=== PATIENT | male | born 1975 | race American Indian/Alaskan Native ===

== ENCOUNTER 2016-12-31 19:41 | Emergency (ER) | payer MEDICARE ==
[2016-12-31 19:50] VITALS: BP 166/122
[2016-12-31] MEDS ORDERED: TYLENOL PO ONE (19:52)
[2016-12-31] MEDS ORDERED: TYLENOL ONE (19:57)
[2016-12-31 20:20] LABS: Basophils % (Auto) 0.5 % (0.0-1.8); Eosinophils % (Auto) 1.2 % (0.0-4.3); Hematocrit 41.8 % (35.5-45.6); Hemoglobin 13.7 gm/dl (11.8-15.2); Mean Corpuscular HGB Conc 33 % (32-34); Mean Corpuscular Hemoglobin 29 pg (28-32); Mean Corpuscular Volume 87 fl (84-94); Platelet Count 219 K/mm3 (140-440); Red Blood Count 4.79 M/mm3 (3.65-5.03); Red Cell Distribution Width 14.3 % (13.2-15.2); White Blood Count 4.2 K/mm3 (4.5-11.0)
[2016-12-31 20:31] LABS: INR 0.98 (0.87-1.13); Partial Thromboplastin Time 27.7 Sec. (24.2-36.6)
[2016-12-31 21:14] LABS: Alanine Aminotransferase 52 units/L (7-56); Albumin 4.1 g/dL (3.9-5); Albumin/Globulin Ratio 1.2 %; Alkaline Phosphatase 86 units/L (35-129); Anion Gap 22 mmol/L; Blood Urea Nitrogen 27 mg/dL (9-20); Calcium 9.1 mg/dL (8.4-10.2); Carbon Dioxide 23 mmol/L (22-30); Chloride 103.7 mmol/L (98-107); Glucose 102 mg/dL (75-100); Lipase 31 units/L (13-60); Potassium 3.5 mmol/L (3.6-5.0); Sodium 145 mmol/L (137-145); Total Protein 7.4 g/dL (6.3-8.2)
[2017-01-01 00:57] LABS: Bilirubin,Urine NEG (Negative); Blood,Urine NEG (Negative); Ketones,Urine TR mg/dL (Negative); Leukocyte Esterase,Urine NEG (Negative); Nitrite,Urine NEG (Negative); Protein,Urine <15 mg/dL mg/dL (Negative); RBC,Urine < 1.0 /HPF (0.0-6.0); Urobilinogen,Urine < 2.0 mg/dL (<2.0)
== END 2017-01-01 00:05 | disposition left against medical advice (07) ==
LOC: ED 19:41
DX: I10 Essential (primary) hypertension (principal); R51 Headache; R11.0 Nausea; Z72.0 Tobacco use; Z88.5 Allergy status to narcotic agent; Z53.21 Procedure and treatment not carried out due to patient leaving prior to being seen by health care provider
CPT/HCPCS: 36415; 80053; 81001; 83690; 84484; 85025; 85610; 85730; 93005; 93010

== ENCOUNTER 2017-01-01 12:13 | Emergency (ER) | payer MEDICARE ==
[2017-01-01 12:26] VITALS: BP 153/111
[2017-01-01 12:59] LABS: Basophils % (Auto) 0.7 % (0.0-1.8); Eosinophils % (Auto) 1.5 % (0.0-4.3); Hematocrit 42.9 % (35.5-45.6); Mean Corpuscular HGB Conc 33 % (32-34); Mean Corpuscular Hemoglobin 28 pg (28-32); Mean Corpuscular Volume 87 fl (84-94); Platelet Count 230 K/mm3 (140-440); Red Blood Count 4.95 M/mm3 (3.65-5.03); Red Cell Distribution Width 14.7 % (13.2-15.2); White Blood Count 2.9 K/mm3 (4.5-11.0)
[2017-01-01 13:36] LABS: Anion Gap 19 mmol/L; Blood Urea Nitrogen 21 mg/dL (9-20); Calcium 9.1 mg/dL (8.4-10.2); Carbon Dioxide 23 mmol/L (22-30); Chloride 107.7 mmol/L (98-107); Glucose 94 mg/dL (75-100); Potassium 3.5 mmol/L (3.6-5.0); Sodium 146 mmol/L (137-145)
== END 2017-01-01 12:40 | disposition left against medical advice (07) ==
LOC: ED 12:13
DX: R07.81 Pleurodynia (principal); R07.9 Chest pain, unspecified; Z53.21 Procedure and treatment not carried out due to patient leaving prior to being seen by health care provider
CPT/HCPCS: 36415; 80048; 84484; 85025; 93005; 93010

== ENCOUNTER 2018-11-11 14:55 | Emergency (ER) | payer MEDICARE ==
[2018-11-11 16:10] LABS: Basophils % (Auto) 0.7 % (0.0-1.8); Eosinophils # (Auto) 0.1 K/mm3 (0.0-0.4); Eosinophils % (Auto) 2.8 % (0.0-4.3); Hematocrit 41.4 % (35.5-45.6); Hemoglobin 13.7 gm/dl (11.8-15.2); Lymphocytes # (Auto) 1.7 K/mm3 (1.2-5.4); Lymphocytes % (Auto) 44.3 % (13.4-35.0); Mean Corpuscular HGB Conc 33 % (32-34); Mean Corpuscular Hemoglobin 30 pg (28-32); Mean Corpuscular Volume 89 fl (84-94); Monocytes # (Auto) 0.4 K/mm3 (0.0-0.8); Monocytes % (Auto) 10.1 % (0.0-7.3); Platelet Count 273 K/mm3 (140-440); Red Blood Count 4.65 M/mm3 (3.65-5.03); Red Cell Distribution Width 14.5 % (13.2-15.2)
[2018-11-11 16:26] LABS: BUN/Creatinine Ratio 19; Blood Urea Nitrogen 17 mg/dL (9-20); Calcium 9.3 mg/dL (8.4-10.2); Hemolysis Index 28
[2018-11-11] MEDS ORDERED: CATAPRES PO ONE (17:00)
--- NOTE | 2018-11-11 17:07 | Emergency Department Report ---
ED General Adult HPI - General Chief complaint: High BP Stated complaint: BP HIGH Time Seen by Provider: 11/11/18 16:36 Source: patient Mode of arrival: Ambulatory Limitations: No Limitations - History of Present Illness Initial comments: The patient presents to the emergency department with the chief complaint elevated blood pressure. The patient was at Dr. Devine's office and his blood pressure was elevated and thus the patient was sent to the emergency department. Patient denies chest pain, says breath, headache, numbness, tingling. Patient also complains of a cough and congestion for the last 2-3 days. Patient endorses taking his blood pressure medications but does not know the name of them. -: unknown Severity scale (0 -10): 0 Consistency: constant Improves with: none Worsens with: none Associated Symptoms: denies other symptoms Treatments Prior to Arrival: none - Related Data Home Medications Medication Instructions Recorded Confirmed Last Taken Valacyclovir HCl [Valtrex] 1,000 mg PO DAILY 06/09/14 06/09/14 06/08/14 carBAMazepine [TEGretol] 200 mg PO BID 06/09/14 06/09/14 06/07/14 Previous Rx's Medication Instructions Recorded Last Taken Type Ibuprofen [Motrin] 600 mg PO Q8H PRN #20 tablet 04/10/18 Unknown Rx ALBUTEROL Inhaler (OR & NICU) 2 puff IH Q4HR PRN #1 inhalation 11/11/18 Unknown Rx [ProAir HFA Inhaler] Azithromycin [Zithromax Z-TERESA] 250 mg PO DAILY #6 tablet 11/11/18 Unknown Rx Benzonatate [Tessalon Perles] 100 mg PO Q8HR PRN #20 capsule 11/11/18 Unknown Rx Allergies Allergy/AdvReac Type Severity Reaction Status Date / Time morphine Allergy Hives Verified 11/11/18 14:56 ED Review of Systems ROS: Stated complaint: BP HIGH Other details as noted in HPI Comment: All other systems reviewed and negative Constitutional: denies: chills, fever Eyes: denies: eye pain, eye discharge, vision change ENT: denies: ear pain, throat pain Respiratory: cough. denies: shortness of breath, wheezing Cardiovascular: denies: chest pain, palpitations Endocrine: no symptoms reported Gastrointestinal: denies: abdominal pain, nausea, diarrhea Genitourinary: denies: urgency, dysuria Musculoskeletal: denies: back pain, joint swelling, arthralgia Skin: denies: rash, lesions Neurological: denies: headache, weakness, paresthesias Psychiatric: denies: anxiety, depression Hematological/Lymphatic: denies: easy bleeding, easy bruising ED Past Medical Hx - Past Medical History Hx Hypertension: Yes Hx CVA: No Hx Heart Attack/AMI: No Hx Congestive Heart Failure: No Hx Diabetes: No Hx Deep Vein Thrombosis: No Hx Pulmonary Embolism: No Hx GERD: No Hx Liver Disease: No Hx Renal Disease: No Hx Sickle Cell Disease: No Hx Arthritis: No Hx Headaches / Migraines: No Hx Seizures: Yes Hx Kidney Stones: No Hx Psychiatric Treatment: No Hx Asthma: No Hx COPD: No Hx Tuberculosis: No Hx Dementia: No Hx HIV: Yes - Surgical History Hx Coronary Stent: No Hx Open Heart Surgery: No Hx Pacemaker: No Hx Internal Defibrillator: No Hx Cholecystectomy: No Hx Appendectomy: No Hx Breast Surgery: No Additional Surgical History: hernia repair - Social History Smoking Status: Never Smoker Substance Use Type: None - Medications Home Medications: Home Medications Medication Instructions Recorded Confirmed Last Taken Type Valacyclovir HCl [Valtrex] 1,000 mg PO DAILY 06/09/14 06/09/14 06/08/14 History carBAMazepine [TEGretol] 200 mg PO BID 06/09/14 06/09/14 06/07/14 History Ibuprofen [Motrin] 600 mg PO Q8H PRN #20 tablet 04/10/18 Unknown Rx ALBUTEROL Inhaler (OR & NICU) 2 puff IH Q4HR PRN #1 inhalation 11/11/18 Unknown Rx [ProAir HFA Inhaler] Azithromycin [Zithromax Z-TERESA] 250 mg PO DAILY #6 tablet 11/11/18 Unknown Rx Benzonatate [Tessalon Perles] 100 mg PO Q8HR PRN #20 capsule 11/11/18 Unknown Rx ED Physical Exam - General Limitations: No Limitations General appearance: alert, in no apparent distress - Head Head exam: Present: atraumatic, normocephalic - Eye Eye exam: Present: normal appearance - ENT ENT exam: Present: mucous membranes moist - Neck Neck exam: Present: normal inspection - Respiratory Respiratory exam: Present: normal lung sounds bilaterally. Absent: respiratory distress - Cardiovascular Cardiovascular Exam: Present: regular rate, normal rhythm. Absent: systolic murmur, diastolic murmur, rubs, gallop - GI/Abdominal GI/Abdominal exam: Present: soft, normal bowel sounds. Absent: distended, tenderness - Rectal Rectal exam: Present: deferred - Extremities Exam Extremities exam: Present: normal inspection - Back Exam Back exam: Present: normal inspection - Neurological Exam Neurological exam: Present: alert, oriented X3, CN II-XII intact. Absent: motor sensory deficit - Psychiatric Psychiatric exam: Present: normal affect, normal mood - Skin Skin exam: Present: warm, dry, intact, normal color. Absent: rash ED Course Vital Signs 11/11/18 11/11/18 11/11/18 15:13 16:00 17:00 Temperature 97.8 F Pulse Rate 63 69 Respiratory 16 Rate Blood Pressure Blood Pressure 186/126 172/113 [Left] O2 Sat by Pulse 100 99 Oximetry 11/11/18 11/11/18 17:27 18:20 Temperature Pulse Rate 69 69 Respiratory Rate Blood Pressure 166/121 Blood Pressure 175/121 [Left] O2 Sat by Pulse Oximetry ED Medical Decision Making - Lab Data Result diagrams: 11/11/18 15:32 11/11/18 15:32 Lab Results 11/11/18 11/11/18 11/11/18 Range/Units 15:32 15:32 15:32 WBC 3.7 L (4.5-11.0) K/mm3 RBC 4.65 (3.65-5.03) M/mm3 Hgb 13.7 (11.8-15.2) gm/dl Hct 41.4 (35.5-45.6) % MCV 89 (84-94) fl MCH 30 (28-32) pg MCHC 33 (32-34) % RDW 14.5 (13.2-15.2) % Plt Count 273 (140-440) K/mm3 Lymph % (Auto) 44.3 H (13.4-35.0) % [place] % (Auto) 10.1 H (0.0-7.3) % Eos % (Auto) 2.8 (0.0-4.3) % Baso % (Auto) 0.7 (0.0-1.8) % Lymph # 1.7 (1.2-5.4) K/mm3 [place] # 0.4 (0.0-0.8) K/mm3 Eos # 0.1 (0.0-0.4) K/mm3 Baso # 0.0 (0.0-0.1) K/mm3 Seg Neutrophils % 42.1 (40.0-70.0) % Seg Neutrophils # 1.6 L (1.8-7.7) K/mm3 Sodium 142 (137-145) mmol/L Potassium 3.5 L (3.6-5.0) mmol/L Chloride 103.1 (98-107) mmol/L Carbon Dioxide 28 (22-30) mmol/L Anion Gap 14 mmol/L BUN 17 (9-20) mg/dL Creatinine 0.9 (0.8-1.5) mg/dL Estimated GFR > 60 ml/min BUN/Creatinine Ratio 19 % Glucose 91 (75-100) mg/dL Calcium 9.3 (8.4-10.2) mg/dL Troponin T < 0.010 (0.00-0.029) ng/mL - Radiology Data Radiology results: report reviewed - Medical Decision Making discussed results with patient Critical care attestation.: If time is entered above; I have spent that time in minutes in the direct care of this critically ill patient, excluding procedure time. ED Disposition Clinical Impression: Hypertension, Acute bronchitis Disposition: TO HOME OR SELFCARE Is pt being admited?: No Does the pt Need Aspirin: No Condition: Stable Instructions: Acute Bronchitis (ED), Hypertension (ED) Additional Instructions: return if worse Prescriptions: ALBUTEROL Inhaler (OR & NICU) [ProAir HFA Inhaler] 2 puff IH Q4HR PRN #1 inhalation PRN Reason: Shortness Of Breath Benzonatate [Tessalon Perles] 100 mg PO Q8HR PRN #20 capsule PRN Reason: Cough Azithromycin [Zithromax Z-TERESA] 250 mg PO DAILY #6 tablet Referrals: PHILIP DEVINE MD [Primary Care Provider] - 3-5 Days Time of Disposition: 18:24
--- NOTE | 2018-11-11 17:30 | XRay Report ---
CHEST 1 VIEW 5:07 PM INDICATION / CLINICAL INFORMATION: Cough. Chest pain, arm pain and leg swelling. High blood pressure. COMPARISON: None available. FINDINGS: SUPPORT DEVICES: None. HEART / MEDIASTINUM: The heart size is normal with a left ventricular configuration. There is mild ao rtic tortuosity without aneurysm. LUNGS / PLEURA: No significant pulmonary or pleural abnormality. No pneumothorax. ADDITIONAL FINDINGS: The left hemidiaphragm is slightly elevated. IMPRESSION: No acute findings. Signer Name: Oliver Medeiros MD Signed: 11/11/2018 5:25 PM Workstation Name: [id number]
[2018-11-11 18:21] VITALS: BP 175/121
== END 2018-11-11 18:53 | disposition home or self-care (01) ==
LOC: ED 14:55
DX: J20.9 Acute bronchitis, unspecified (principal); I10 Essential (primary) hypertension; Z88.5 Allergy status to narcotic agent; Z79.1 Long term (current) use of non-steroidal anti-inflammatories (NSAID); Z21 Asymptomatic human immunodeficiency virus [HIV] infection status; Z98.890 Other specified postprocedural states
CPT/HCPCS: 36415; 71045; 80048; 84484; 85025; 93005; 93010; 99284

== ENCOUNTER 2018-11-21 10:17 | Emergency (ER) | payer MEDICARE ==
[2018-11-21] MEDS ORDERED: FIORICET PO ONE (10:58)
[2018-11-21] MEDS ORDERED: BENADRYL IV ONE (10:58)
[2018-11-21] MEDS ORDERED: REGLAN IV ONE (10:58)
--- NOTE | 2018-11-21 11:05 | Emergency Department Report ---
ED General Adult HPI - General Chief complaint: Chest Pain Stated complaint: CHEST PAIN Time Seen by Provider: 11/21/18 10:34 Source: patient Mode of arrival: Ambulatory Limitations: No Limitations - History of Present Illness Initial comments: Disposition persistent emergency department with a chief complaint of chest pain one week which has been consistent in nature. The chest pain the patient also complains of shortness of breath which has become progressively worse over this timeframe as well. Patient complains of a frontal headache that has been present for 1 day which is consistent with prior headaches and is not the worst headache of his life. -: Gradual Location: head, chest Severity scale (0 -10): 8 Quality: aching Consistency: constant Improves with: none Worsens with: none Associated Symptoms: denies other symptoms Treatments Prior to Arrival: none - Related Data Home Medications Medication Instructions Recorded Confirmed Last Taken Valacyclovir HCl [Valtrex] 1,000 mg PO DAILY 06/09/14 06/09/14 06/08/14 carBAMazepine [TEGretol] 200 mg PO BID 06/09/14 06/09/14 06/07/14 Previous Rx's Medication Instructions Recorded Last Taken Type Ibuprofen [Motrin] 600 mg PO Q8H PRN #20 tablet 04/10/18 Unknown Rx ALBUTEROL Inhaler (OR & NICU) 2 puff IH Q4HR PRN #1 inhalation 11/11/18 Unknown Rx [ProAir HFA Inhaler] Azithromycin [Zithromax Z-TERESA] 250 mg PO DAILY #6 tablet 11/11/18 Unknown Rx Benzonatate [Tessalon Perles] 100 mg PO Q8HR PRN #20 capsule 11/11/18 Unknown Rx Allergies Allergy/AdvReac Type Severity Reaction Status Date / Time morphine Allergy Hives Verified 11/11/18 14:56 Sulfa (Sulfonamide Allergy Hives Verified 11/21/18 10:23 Antibiotics) ED Review of Systems ROS: Stated complaint: CHEST PAIN Other details as noted in HPI Comment: All other systems reviewed and negative Constitutional: denies: chills, fever Eyes: denies: eye pain, eye discharge, vision change ENT: denies: ear pain, throat pain Respiratory: shortness of breath. denies: cough, wheezing Cardiovascular: chest pain. denies: palpitations Endocrine: no symptoms reported Gastrointestinal: denies: abdominal pain, nausea, diarrhea Genitourinary: denies: urgency, dysuria Musculoskeletal: denies: back pain, joint swelling, arthralgia Skin: denies: rash, lesions Neurological: denies: headache, weakness, paresthesias Psychiatric: denies: anxiety, depression Hematological/Lymphatic: denies: easy bleeding, easy bruising ED Past Medical Hx - Past Medical History Hx Hypertension: Yes Hx CVA: No Hx Heart Attack/AMI: No Hx Congestive Heart Failure: No Hx Diabetes: No Hx Deep Vein Thrombosis: No Hx Pulmonary Embolism: No Hx GERD: No Hx Liver Disease: No Hx Renal Disease: No Hx Sickle Cell Disease: No Hx Arthritis: No Hx Headaches / Migraines: No Hx Seizures: Yes Hx Kidney Stones: No Hx Psychiatric Treatment: No Hx Asthma: No Hx COPD: No Hx Tuberculosis: No Hx Dementia: No Hx HIV: Yes - Surgical History Hx Coronary Stent: No Hx Open Heart Surgery: No Hx Pacemaker: No Hx Internal Defibrillator: No Hx Cholecystectomy: No Hx Appendectomy: No Hx Breast Surgery: No Additional Surgical History: hernia repair - Social History Smoking Status: Never Smoker Substance Use Type: Alcohol - Medications Home Medications: Home Medications Medication Instructions Recorded Confirmed Last Taken Type Valacyclovir HCl [Valtrex] 1,000 mg PO DAILY 06/09/14 06/09/14 06/08/14 History carBAMazepine [TEGretol] 200 mg PO BID 06/09/14 06/09/14 06/07/14 History Ibuprofen [Motrin] 600 mg PO Q8H PRN #20 tablet 04/10/18 Unknown Rx ALBUTEROL Inhaler (OR & NICU) 2 puff IH Q4HR PRN #1 inhalation 11/11/18 Unknown Rx [ProAir HFA Inhaler] Azithromycin [Zithromax Z-TERESA] 250 mg PO DAILY #6 tablet 11/11/18 Unknown Rx Benzonatate [Tessalon Perles] 100 mg PO Q8HR PRN #20 capsule 11/11/18 Unknown Rx ED Physical Exam - General Limitations: No Limitations General appearance: alert, in no apparent distress - Head Head exam: Present: atraumatic, normocephalic - Eye Eye exam: Present: normal appearance, PERRL - ENT ENT exam: Present: mucous membranes moist - Neck Neck exam: Present: normal inspection - Respiratory Respiratory exam: Present: normal lung sounds bilaterally. Absent: respiratory distress - Cardiovascular Cardiovascular Exam: Present: regular rate, normal rhythm. Absent: systolic murmur, diastolic murmur, rubs, gallop - GI/Abdominal GI/Abdominal exam: Present: soft, normal bowel sounds. Absent: distended, tenderness - Rectal Rectal exam: Present: deferred - Extremities Exam Extremities exam: Present: normal inspection - Back Exam Back exam: Present: normal inspection - Neurological Exam Neurological exam: Present: alert, oriented X3, CN II-XII intact. Absent: motor sensory deficit - Psychiatric Psychiatric exam: Present: normal affect, normal mood - Skin Skin exam: Present: warm, dry, intact, normal color. Absent: rash ED Course Vital Signs 11/21/18 11/21/18 11/21/18 10:19 10:23 10:30 Temperature 98 F Pulse Rate 66 Respiratory 16 Rate Blood Pressure 147/102 147/102 147/102 O2 Sat by Pulse 100 99 100 Oximetry 11/21/18 11/21/18 11/21/18 10:45 11:00 11:25 Temperature Pulse Rate Respiratory Rate Blood Pressure 163/114 163/114 147/102 O2 Sat by Pulse 100 100 100 Oximetry 11/21/18 11/21/18 11/21/18 11:30 11:45 12:00 Temperature Pulse Rate Respiratory Rate Blood Pressure 167/115 151/102 150/103 O2 Sat by Pulse 98 99 97 Oximetry 11/21/18 11/21/18 11/21/18 12:15 12:30 12:45 Temperature Pulse Rate Respiratory Rate Blood Pressure 144/96 153/104 145/106 O2 Sat by Pulse 97 98 92 Oximetry 11/21/18 13:01 Temperature Pulse Rate Respiratory Rate Blood Pressure 155/112 O2 Sat by Pulse 97 Oximetry ED Medical Decision Making - Lab Data Result diagrams: 11/21/18 11:29 11/21/18 11:29 Lab Results 11/21/18 11/21/18 11/21/18 Range/Units 11:29 11:29 11:29 WBC 2.9 L (4.5-11.0) K/mm3 RBC 4.89 (3.65-5.03) M/mm3 Hgb 14.2 (11.8-15.2) gm/dl Hct 43.0 (35.5-45.6) % MCV 88 (84-94) fl MCH 29 (28-32) pg MCHC 33 (32-34) % RDW 14.1 (13.2-15.2) % Plt Count 232 (140-440) K/mm3 Lymph % (Auto) 41.1 H (13.4-35.0) % [place] % (Auto) 12.1 H (0.0-7.3) % Eos % (Auto) 4.8 H (0.0-4.3) % Baso % (Auto) 0.5 (0.0-1.8) % Lymph # 1.2 (1.2-5.4) K/mm3 [place] # 0.3 (0.0-0.8) K/mm3 Eos # 0.1 (0.0-0.4) K/mm3 Baso # 0.0 (0.0-0.1) K/mm3 Seg Neutrophils % 41.5 (40.0-70.0) % Seg Neutrophils # 1.2 L (1.8-7.7) K/mm3 PT 12.6 (12.2-14.9) Sec. INR 0.97 (0.87-1.13) APTT 28.3 (24.2-36.6) Sec. Sodium 139 (137-145) mmol/L Potassium 3.5 L (3.6-5.0) mmol/L Chloride 101.4 (98-107) mmol/L Carbon Dioxide 26 (22-30) mmol/L Anion Gap 15 mmol/L BUN 18 (9-20) mg/dL Creatinine 0.9 (0.8-1.5) mg/dL Estimated GFR > 60 ml/min BUN/Creatinine Ratio 20 % Glucose 92 (75-100) mg/dL Calcium 9.3 (8.4-10.2) mg/dL Total Bilirubin 0.20 (0.1-1.2) mg/dL AST 21 (5-40) units/L ALT 19 (7-56) units/L Alkaline Phosphatase 89 (35-129) units/L Troponin T < 0.010 (0.00-0.029) ng/mL Total Protein 7.4 (6.3-8.2) g/dL Albumin 3.9 (3.9-5) g/dL Albumin/Globulin Ratio 1.1 % Lipase 44 (13-60) units/L Urine Color (Yellow) Urine Turbidity (Clear) Urine pH (5.0-7.0) Ur Specific [place] (1.003-1.030) Urine Protein (Negative) mg/dL Urine Glucose (UA) (Negative) mg/dL Urine Ketones (Negative) mg/dL Urine Blood (Negative) Urine Nitrite (Negative) Urine Bilirubin (Negative) Urine Urobilinogen (<2.0) mg/dL Ur Leukocyte Esterase (Negative) Urine WBC (Auto) (0.0-6.0) /HPF Urine RBC (Auto) (0.0-6.0) /HPF Urine Opiates Screen Urine Methadone Screen Ur Barbiturates Screen Ur Phencyclidine Scrn Ur Amphetamines Screen U Benzodiazepines Scrn Urine Cocaine Screen U Marijuana (THC) Screen Drugs of Abuse Note 11/21/18 11/21/18 11/21/18 Range/Units 12:53 13:14 13:14 WBC (4.5-11.0) K/mm3 RBC (3.65-5.03) M/mm3 Hgb (11.8-15.2) gm/dl Hct (35.5-45.6) % MCV (84-94) fl MCH (28-32) pg MCHC (32-34) % RDW (13.2-15.2) % Plt Count (140-440) K/mm3 Lymph % (Auto) (13.4-35.0) % [place] % (Auto) (0.0-7.3) % Eos % (Auto) (0.0-4.3) % Baso % (Auto) (0.0-1.8) % Lymph # (1.2-5.4) K/mm3 [place] # (0.0-0.8) K/mm3 Eos # (0.0-0.4) K/mm3 Baso # (0.0-0.1) K/mm3 Seg Neutrophils % (40.0-70.0) % Seg Neutrophils # (1.8-7.7) K/mm3 PT (12.2-14.9) Sec. INR (0.87-1.13) APTT (24.2-36.6) Sec. Sodium (137-145) mmol/L Potassium (3.6-5.0) mmol/L Chloride (98-107) mmol/L Carbon Dioxide (22-30) mmol/L Anion Gap mmol/L BUN (9-20) mg/dL Creatinine (0.8-1.5) mg/dL Estimated GFR ml/min BUN/Creatinine Ratio % Glucose (75-100) mg/dL Calcium (8.4-10.2) mg/dL Total Bilirubin (0.1-1.2) mg/dL AST (5-40) units/L ALT (7-56) units/L Alkaline Phosphatase (35-129) units/L Troponin T < 0.010 (0.00-0.029) ng/mL Total Protein (6.3-8.2) g/dL Albumin (3.9-5) g/dL Albumin/Globulin Ratio % Lipase (13-60) units/L Urine Color Yellow (Yellow) Urine Turbidity Clear (Clear) Urine pH 6.0 (5.0-7.0) Ur Specific [place] 1.016 (1.003-1.030) Urine Protein <15 mg/dl (Negative) mg/dL Urine Glucose (UA) Neg (Negative) mg/dL Urine Ketones Neg (Negative) mg/dL Urine Blood Neg (Negative) Urine Nitrite Neg (Negative) Urine Bilirubin Neg (Negative) Urine Urobilinogen < 2.0 (<2.0) mg/dL Ur Leukocyte Esterase Neg (Negative) Urine WBC (Auto) < 1.0 (0.0-6.0) /HPF Urine RBC (Auto) 2.0 (0.0-6.0) /HPF Urine Opiates Screen Presumptive negative Urine Methadone Screen Presumptive negative Ur Barbiturates Screen Presumptive positive Ur Phencyclidine Scrn Presumptive negative Ur Amphetamines Screen Presumptive negative U Benzodiazepines Scrn Presumptive negative Urine Cocaine Screen Presumptive negative U Marijuana (THC) Screen Presumptive negative Drugs of Abuse Note Disclamer - EKG Data -: EKG Interpreted by Mi EKG shows normal: sinus rhythm Rate: normal - Radiology Data Radiology results: report reviewed - Medical Decision Making Discussed results with patient Critical care attestation.: If time is entered above; I have spent that time in minutes in the direct care of this critically ill patient, excluding procedure time. ED Disposition Clinical Impression: Nonspecific chest pain, Headache Disposition: DC-01 TO HOME OR SELFCARE Is pt being admited?: No Does the pt Need Aspirin: No Condition: Stable Instructions: Noncardiac Chest Pain (ED), Chest Pain (ED), Acute Headache (ED) Time of Disposition: 14:29
--- NOTE | 2018-11-21 11:20 | XRay Report ---
CHEST 1 VIEW INDICATION: Chest pain for 2 days. COMPARISON: 11/11/2018 FINDINGS: Support devices: None. Heart: Within normal limits. Lungs/Pleura: No acute air space or interstitial disease. Additional findings: None. IMPRESSION: No acute findings. Signer Name: Geovanny Barrera Jr, MD Signed: 11/21/2018 11:16 AM Workstation Name: [id number]
[2018-11-21 11:49] LABS: Basophils % (Auto) 0.5 % (0.0-1.8); Eosinophils # (Auto) 0.1 K/mm3 (0.0-0.4); Eosinophils % (Auto) 4.8 % (0.0-4.3); Hemoglobin 14.2 gm/dl (11.8-15.2); Lymphocytes # (Auto) 1.2 K/mm3 (1.2-5.4); Lymphocytes % (Auto) 41.1 % (13.4-35.0); Mean Corpuscular HGB Conc 33 % (32-34); Mean Corpuscular Volume 88 fl (84-94); Monocytes # (Auto) 0.3 K/mm3 (0.0-0.8); Monocytes % (Auto) 12.1 % (0.0-7.3); Platelet Count 232 K/mm3 (140-440); Red Blood Count 4.89 M/mm3 (3.65-5.03); Red Cell Distribution Width 14.1 % (13.2-15.2)
[2018-11-21 11:59] LABS: INR 0.97 (0.87-1.13)
[2018-11-21 12:00] LABS: Partial Thromboplastin Time 28.3 Sec. (24.2-36.6)
[2018-11-21 12:14] LABS: Alanine Aminotransferase 19 units/L (7-56); Albumin 3.9 g/dL (3.9-5); BUN/Creatinine Ratio 20; Blood Urea Nitrogen 18 mg/dL (9-20); Calcium 9.3 mg/dL (8.4-10.2); Hemolysis Index 11
[2018-11-21 13:29] LABS: Bilirubin,Urine NEG (Negative); Blood,Urine NEG (Negative); Color,Urine Yellow (Yellow); Protein,Urine <15 mg/dL mg/dL (Negative); Urobilinogen,Urine < 2.0 mg/dL (<2.0); WBC,Urine < 1.0 /HPF (0.0-6.0)
[2018-11-21 13:38] LABS: Amphetamine Screen,Urine PRESUMPTIVE NEGATIVE; Benzodiazepines Screen,Urine PRESUMPTIVE NEGATIVE; Cannabinoid Screen,Urine PRESUMPTIVE NEGATIVE; Cocaine Screen,Urine PRESUMPTIVE NEGATIVE; Methadone Screen,Urine PRESUMPTIVE NEGATIVE; Opiate Screen,Urine PRESUMPTIVE NEGATIVE
--- NOTE | 2018-11-21 13:52 | Cat Scan Report ---
CTA CHEST WITH CONTRAST INDICATION : Chest pain and shortness of breath for one day. TECHNIQUE: Axial imaging performed through the chest, with contrast bolus timing set to maximize opa cification of the pulmonary arteries. Sagittal and coronal reformatted images. 3-plane MIP reformatte d images were obtained. All CT scans at this location are performed using CT dose reduction for ALAR A by means of automated exposure control. 100 mL of intravenous contrast administered. COMPARISON: None FINDINGS: Bolus: Contrast bolus timing is adequate. PTE: No filling defect is present to suggest PTE. The pulmonary arteries appear slightly prominent b ilaterally which could represent pulmonary arterial hypertension. Mediastinum: Heart and great vessels appear normal. No pathologic mediastinal adenopathy. Lungs: Lungs are clear. Minimal hypoventilatory changes are noted in the lower lobes. Bones: Degenerative changes in the spine with nothing acute. Upper abdomen: Limited imaging of the upper abdomen shows nothing acute. IMPRESSION: Negative for PTE. Clear lungs. Signer Name: Geovanny Barrera Jr, MD Signed: 11/21/2018 1:48 PM Workstation Name: [id number]
[2018-11-21 15:56] VITALS: BP 153/113
== END 2018-11-21 15:50 | disposition home or self-care (01) ==
LOC: ED 10:17
DX: R07.89 Other chest pain (principal); R51 Headache; R06.02 Shortness of breath; I10 Essential (primary) hypertension; Z79.899 Other long term (current) drug therapy; Z88.6 Allergy status to analgesic agent; Z88.2 Allergy status to sulfonamides
CPT/HCPCS: 36415; 71045; 71275; 80053; 80307; 81001; 83690; 84484; 85025; 85610; 85730; 93005; 93010; 96374; 96375; 99284; J1200; J2765; Q9967

== ENCOUNTER 2019-01-27 17:21 | Emergency (ER) | payer MEDICARE ==
--- NOTE | 2019-01-27 17:51 | Event Note ---
ED Screening Note ED Screening Note: c/o substernal CP today has associated nausea states he has a mild [place] no vomiting no SOB PMHx HTN, seizures, HIV This initial assessment/diagnostic orders/clinical plan/treatment(s) is/are subject to change based on patients health status, clinical progression and re- assessment by fellow clinical providers in the ED. Further treatment and workup at subsequent clinical providers discretion. Patient/guardian urged not to elope from the ED as their condition may be serious if not clinically assessed and managed. Initial orders include: cp protocol
[2019-01-27 18:36] LABS: Hematocrit 41.7 % (35.5-45.6); Hemoglobin 13.6 gm/dl (11.8-15.2); Mean Corpuscular HGB Conc 33 % (32-34); Mean Corpuscular Volume 89 fl (84-94); Platelet Count 321 K/mm3 (140-440); Red Blood Count 4.67 M/mm3 (3.65-5.03); Red Cell Distribution Width 14.9 % (13.2-15.2)
[2019-01-27 18:52] LABS: Eosinophils # (Auto) 0.1 K/mm3 (0.0-0.4); Eosinophils % (Auto) 3.6 % (0.0-4.3); Monocytes # (Auto) 0.3 K/mm3 (0.0-0.8); Monocytes % (Auto) 10.5 % (0.0-7.3)
[2019-01-27 19:11] LABS: BUN/Creatinine Ratio 8; Blood Urea Nitrogen 7 mg/dL (9-20)
[2019-01-27 19:12] LABS: Alanine Aminotransferase 33 units/L (7-56); Albumin 3.9 g/dL (3.9-5); Calcium 8.6 mg/dL (8.4-10.2); Hemolysis Index 12
[2019-01-27] MEDS ORDERED: ALUM-MAG HYDROXIDE-SIMETHICONE 200-200-20MG/5ML ORAL LIQD 30 ML PO ONE (19:43)
[2019-01-27] MEDS ORDERED: LIDOCAINE VISCOUS 2% 15 ML ORAL LIQD PO ONE (19:43)
[2019-01-27] MEDS ORDERED: hydrALAZINE 25 MG TAB PO ONE (20:21)
[2019-01-27] MEDS ORDERED: traMADol 50 MG TAB PO ONE (20:22)
[2019-01-27] MEDS ORDERED: diphenhydrAMINE 25 MG CAP PO ONE (20:24)
[2019-01-27] MEDS ORDERED: ACETAMINOPHEN 500 MG TAB PO ONE (20:24)
--- NOTE | 2019-01-27 20:27 | Emergency Department Report ---
ED Chest Pain HPI - General Chief Complaint: Chest Pain Stated Complaint: CHEST PAIN/MICHAELA Time Seen by Provider: 01/27/19 17:49 Source: patient Mode of arrival: Ambulatory Limitations: No Limitations - History of Present Illness Initial Comments: Patient failure -Kitt[place] male with history of hypertension and HIV c/o substernal CP today has associated nausea states he has a mild GREEN[place] no vomiting no SOB PMHx HTN, seizures, HIV and hiatal hernia repair Complaint: chest pain Onset/Timin -: days(s) Onset: during rest Pain Location: substernal Pain Radiation: none Severity: moderate Severity scale (0 -10): 5 Quality: sharp Consistency: intermittent Improves With: nothing Worsens With: exertion, inspiration, eating, palpation, movement re: denies: nausea, vomting, diaphoresis, dyspnea, sense of impending doom Other Symptoms: acid taste in mouth, burping Treatments Prior to Arrival: none Aspirin use within the Past 7 Days: (0) No - Related Data Home Medications Medication Instructions Recorded Confirmed Last Taken Valacyclovir HCl [Valtrex] 1,000 mg PO DAILY 06/09/14 06/09/14 06/08/14 carBAMazepine [TEGretol] 200 mg PO BID 06/09/14 06/09/14 06/07/14 Previous Rx's Medication Instructions Recorded Last Taken Type Ibuprofen [Motrin] 600 mg PO Q8H PRN #20 tablet 04/10/18 Unknown Rx ALBUTEROL Inhaler (OR & NICU) 2 puff IH Q4HR PRN #1 inhalation 11/11/18 Unknown Rx [ProAir HFA Inhaler] Azithromycin [Zithromax Z-TERESA] 250 mg PO DAILY #6 tablet 11/11/18 Unknown Rx Benzonatate [Tessalon Perles] 100 mg PO Q8HR PRN #20 capsule 11/11/18 Unknown Rx Famotidine [Pepcid] 20 mg PO BID #30 tablet 01/27/19 Unknown Rx Allergies Allergy/AdvReac Type Severity Reaction Status Date / Time morphine Allergy Hives Verified 11/11/18 14:56 Sulfa (Sulfonamide Allergy Hives Verified 11/21/18 10:23 Antibiotics) Heart Score - HEART Score History: Moderately suspicious EKG: Normal Age: < 45 Risk factors: 1-2 risk factors Troponin: < normal limit HEART Score: 2 ED Review of Systems ROS: Stated complaint: CHEST PAIN/MICHAELA Other details as noted in HPI Constitutional: denies: chills, fever Eyes: as per HPI ENT: denies: ear pain, throat pain Respiratory: denies: cough, shortness of breath, wheezing Cardiovascular: chest pain. denies: dyspnea on exertion, orthopnea, edema, paroxysmal nocturnal dyspnea Endocrine: no symptoms reported Gastrointestinal: as per HPI. denies: abdominal pain, nausea, vomiting, melena Genitourinary: denies: urgency, dysuria Musculoskeletal: denies: back pain, joint swelling, arthralgia Skin: denies: rash, lesions Neurological: headache. denies: weakness, paresthesias, confusion, vertigo Psychiatric: denies: anxiety, depression Hematological/Lymphatic: denies: easy bleeding, easy bruising ED Past Medical Hx - Past Medical History Previous Medical History?: Yes Hx Hypertension: Yes Hx CVA: No Hx Heart Attack/AMI: No Hx Congestive Heart Failure: No Hx Diabetes: No Hx Deep Vein Thrombosis: No Hx Pulmonary Embolism: No Hx GERD: No Hx Liver Disease: No Hx Renal Disease: No Hx Sickle Cell Disease: No Hx Arthritis: No Hx Headaches / Migraines: No Hx Seizures: Yes Hx Kidney Stones: No Hx Psychiatric Treatment: No Hx Asthma: No Hx COPD: No Hx Tuberculosis: No Hx Dementia: No Hx HIV: Yes - Surgical History Past Surgical History?: Yes Hx Coronary Stent: No Hx Open Heart Surgery: No Hx Pacemaker: No Hx Internal Defibrillator: No Hx Cholecystectomy: No Hx Appendectomy: No Hx Breast Surgery: No Additional Surgical History: hernia repair - Social History Smoking Status: Never Smoker Substance Use Type: None - Medications Home Medications: Home Medications Medication Instructions Recorded Confirmed Last Taken Type Valacyclovir HCl [Valtrex] 1,000 mg PO DAILY 06/09/14 06/09/14 06/08/14 History carBAMazepine [TEGretol] 200 mg PO BID 06/09/14 06/09/14 06/07/14 History Ibuprofen [Motrin] 600 mg PO Q8H PRN #20 tablet 04/10/18 Unknown Rx ALBUTEROL Inhaler (OR & NICU) 2 puff IH Q4HR PRN #1 inhalation 11/11/18 Unknown Rx [ProAir HFA Inhaler] Azithromycin [Zithromax Z-TERESA] 250 mg PO DAILY #6 tablet 11/11/18 Unknown Rx Benzonatate [Tessalon Perles] 100 mg PO Q8HR PRN #20 capsule 11/11/18 Unknown Rx Famotidine [Pepcid] 20 mg PO BID #30 tablet 01/27/19 Unknown Rx ED Physical Exam - General Limitations: No Limitations General appearance: alert, in no apparent distress - Head Head exam: Present: atraumatic, normocephalic - Eye Eye exam: Present: normal appearance, PERRL, EOMI Pupils: Present: normal accommodation - ENT ENT exam: Present: mucous membranes moist. Absent: normal orophraynx, TM's normal bilaterally, normal external ear exam - Neck Neck exam: Present: normal inspection, full ROM. Absent: tenderness, lymphadenopathy, thyromegaly - Respiratory Respiratory exam: Present: normal lung sounds bilaterally. Absent: respiratory distress, wheezes, stridor, chest wall tenderness - Cardiovascular Cardiovascular Exam: Present: regular rate, normal rhythm, normal heart sounds. Absent: systolic murmur, diastolic murmur, rubs, gallop - GI/Abdominal GI/Abdominal exam: Present: soft, normal bowel sounds. Absent: distended, tenderness, guarding, rebound, rigid, bruit, hernia - Rectal Rectal exam: Present: deferred - Extremities Exam Extremities exam: Present: normal inspection, normal capillary refill (will) - Back Exam Back exam: Present: normal inspection, full ROM. Absent: tenderness, CVA tenderness (R), CVA tenderness (L), muscle spasm, paraspinal tenderness, rash noted (34 iliac) - Neurological Exam Neurological exam: Present: alert, CN II-XII intact, normal gait - Psychiatric Psychiatric exam: Present: normal affect, normal mood - Skin Skin exam: Present: warm, dry, intact, normal color. Absent: rash ED Course Vital Signs 01/27/19 01/27/19 17:49 21:20 Temperature 98.2 F Pulse Rate 80 75 Respiratory 18 18 Rate Blood Pressure 157/102 149/100 O2 Sat by Pulse 96 Oximetry FRANKIE score - Frankie Score Age > 65: (0) No Aspirin use within the Past 7 Days: (0) No 3 or more CAD Risk Factors: (0) No 2 or more Angina events in past 24 hrs: (0) No Known CAD with more than 50% Stenosis: (0) No Elevated Cardiac Markers: (0) No ST Deviation Greater than 0.5mm: (0) No FRANKIE Score: 0 ED Medical Decision Making - Lab Data Result diagrams: 01/27/19 18:11 01/27/19 18:11 - EKG Data EKG shows normal: sinus rhythm, axis, QRS complexes, ST-T waves Rate: normal - EKG Data When compared to previous EKG there are: no significant change Interpretation: unchanged when compared t (ekg interp be ed attending ), LVH (OO portable yet resulted in a knee) - Radiology Data Radiology results: image reviewed no change from previous xray, no infiltrates no opacities - Medical Decision Making Chest pain resolved with GI cocktail patient states headache is relieved with 0/10 heart score is 2 FRANKIE score is 0 chest x-ray no change from previous infiltrate no opacities EKG normal sinus rhythm with LVH interpreted by the attending plan NSAIDs follow up with Dr. Hackett follow Dr. Naylor PCP and infectious disease continue to take all medicines as prescribed we'll DC tomorrow Pepcid this is likely GERD episode patient is alert oriented 3 ambulatory with steady gait tolerating by mouth denies chest pain or shortness of breath no dizziness no lightheadedness no back pain or diaphoresis DC'd to home in stable condition at this time. Critical care attestation.: If time is entered above; I have spent that time in minutes in the direct care of this critically ill patient, excluding procedure time. ED Disposition Clinical Impression: Chest pain Qualifiers: Chest pain type: unspecified Qualified Code(s): R07.9 - Chest pain, unspecified GERD (gastroesophageal reflux disease) Qualifiers: Esophagitis presence: without esophagitis Qualified Code(s): K21.9 - Gastro- esophageal reflux disease without esophagitis Disposition: DC-01 TO HOME OR SELFCARE Is pt being admited?: No Does the pt Need Aspirin: No Instructions: Chest Pain (ED), Diet for Ulcers and Gastritis (ED), Gastroesophageal Reflux Disease (ED) Prescriptions: Famotidine [Pepcid] 20 mg PO BID #30 tablet Referrals: HEMANTH HACKETT MD [Referring] - 3-5 Days CARLENE NAYLOR MD [Referring] - 3-5 Days Forms: Work/School Release Form(ED) Time of Disposition: 21:53
[2019-01-27] MEDS ORDERED: POTASSIUM CHLORIDE ER 20 MEQ TAB PO ONE (20:28)
[2019-01-27 21:10] LABS: Basophils % (Manual) 0 % (0.0-1.8); Total Cells Counted 100
[2019-01-27 21:13] LABS: Platelet Estimate Consistent w Auto; RBC Morphology Normal
[2019-01-27 21:21] VITALS: BP 149/100
--- NOTE | 2019-01-28 08:43 | XRay Report ---
CHEST 2 VIEWS INDICATION / CLINICAL INFORMATION: CP. COMPARISON: Chest x-ray 11/21/2018 FINDINGS: SUPPORT DEVICES: None. HEART / MEDIASTINUM: No significant abnormality. LUNGS / PLEURA: No significant pulmonary or pleural abnormality. Suboptimal inspiratory effort with l inear bibasilar atelectasis. No pneumothorax. ADDITIONAL FINDINGS: No significant additional findings. IMPRESSION: 1. No acute findings. Signer Name: Manas Mchugh MD Signed: 01/28/2019 8:39 AM Workstation Name: [id number]
== END 2019-01-27 22:05 | disposition home or self-care (01) ==
LOC: ED 17:21
DX: K21.9 Gastro-esophageal reflux disease without esophagitis (principal); I10 Essential (primary) hypertension
CPT/HCPCS: 36415; 71046; 80053; 83690; 84484; 85007; 85025; 93005; 93010

== ENCOUNTER 2020-10-12 15:43 | Emergency (ER) | payer MEDICARE ==
--- NOTE | 2020-10-12 16:35 | Event Note ---
ED Screening Note Date of service: 10/12/20 Time: 16:32 ED Screening Note: 45-year-old male patient with history of HIV (unsure of last CD4 count), multiple CVAs, alcohol use, cocaine use, and hypertension presents to the emergency department with complaints of nontraumatic headache, nausea, diz ziness, and chest pain starting 2 days ago. Describes the dizziness as "feeling off-balance." Patient states he is anticoagulated but is unsure of the name of the medication. He also cannot recall the name of his antiretroviral therapy, but states he is compliant with his medication. Chest pain is described as "sharp." General: Awake, appropriately interactive, no acute distress. Eyes: Pupils equal round reactive to light. Bilateral horizontal nystagmus. Headache is exacerbated by extraocular movements. Neck: Supple. Full range of motion intact. Cardiovascular: Normal peripheral perfusion. Pulmonary: No respiratory distress. Patient is speaking normally without use of accessory muscles. Skin: No apparent rashes or lesions. Neurological: No facial asymmetry. Speech is clear. Follows commands. Patient is alert and oriented. Musculoskeletal: Moves all four extremities spontaneously with normal range of motion. Psych: Cooperative. Appropriate mood and affect. Labs, EKG, and CT head ordered; discussed with attending emergency physician, who agrees with diagnostic work-up. I have greeted and performed a focused rapid initial assessment of this patient. A comprehensive ED assessment and evaluation of the patient, analysis of all test results, and completion of the medical decision-making process will be conducted by additional ED providers. This initial assessment/diagnostic orders/clinical plan/treatment(s) is/are subject to change based on patients health status, clinical progression and re-assessment. Further treatment and workup at subsequent clinical provider's discretion. Patient/guardian urged not to elope from the ED as their condition may be serious if not clinically assessed and managed.
--- NOTE | 2020-10-12 17:05 | XRay Report ---
CHEST 2 VIEWS INDICATION: chest pain. COMPARISON: 02/11/2019 FINDINGS: Support devices: None. Heart: Within normal limits. Lungs: No acute air space or interstitial disease. Pleura: No significant pleural effusion. No pneumothorax. Additional findings: None. IMPRESSION: 1. No acute findings. Signer Name: Jw Marie MD Signed: 10/12/2020 5:01 PM Workstation Name: [id number]
[2020-10-12 17:28] LABS: Hematocrit 43.9 % (35.5-45.6); Hemoglobin 14.4 gm/dl (11.8-15.2); Mean Corpuscular HGB Conc 33 % (32-34); Mean Corpuscular Volume 88 fl (84-94); Platelet Count 283 K/mm3 (140-440); Red Cell Distribution Width 15.1 % (13.2-15.2)
[2020-10-12 17:40] LABS: INR 0.89 (0.87-1.13)
[2020-10-12 17:41] LABS: Partial Thromboplastin Time 28.1 Sec. (24.2-36.6)
[2020-10-12 17:48] LABS: Alanine Aminotransferase 27 units/L (7-56); Albumin 4.2 g/dL (3.9-5); BUN/Creatinine Ratio 19; Blood Urea Nitrogen 17 mg/dL (9-20); Calcium 9.1 mg/dL (8.4-10.2); Hemolysis Index 7
[2020-10-12] MEDS ORDERED: POTASSIUM CHLORIDE ER 20 MEQ TAB PO ONE (18:06)
[2020-10-12] MEDS ORDERED: HYDROcodone/ACETAMINOPHEN 5-325 MG TAB PO ONE (18:27)
--- NOTE | 2020-10-12 18:31 | Emergency Department Report ---
HPI - General Chief Complaint: Dizziness Time Seen by Provider: 10/12/20 18:03 - HPI HPI: Room 23 The patient is a 45-year-old male present with a chief complaint of chest pain radiating to his abdomen. Patient states he has had this intermittent chest pain radiating to his abdomen for several years. Patient states he has had multiple work-ups in the past but has never been given a diagnosis. Patient states the pain again started yesterday with pain to the right chest described as sharp and cold in nature. Patient states that radiates to the substernal chest region and then to his abdomen. Patient denies shortness of breath, fever or cough. Patient states he also developed a headache yesterday. The patient states he also has pain from the left thigh down to the left foot. Patient gives his chest pain a score of 8/10. ED Past Medical Hx - Past Medical History Previous Medical History?: Yes Hx Hypertension: Yes Hx Seizures: Yes Hx HIV: Yes (States he was told all his counts were normal Spring 2020) - Surgical History Past Surgical History?: Yes Additional Surgical History: hernia repair, craniotomy for "removal of [seizure focus]" - Family History Family history: no significant - Social History Smoking Status: Former Smoker (None x6-month) Substance Use Type: Alcohol (Occasional), Cocaine (Last used cocaine in May 2020) - Medications Home Medications: Home Medications Medication Instructions Recorded Confirmed Last Taken Type Valacyclovir HCl [Valtrex] 1,000 mg PO DAILY 06/09/14 06/09/14 10/12/20 History carBAMazepine [TEGretol] 200 mg PO BID 06/09/14 06/09/14 10/12/20 History Ibuprofen [Motrin] 600 mg PO Q8H PRN #20 tablet 04/10/18 10/12/20 Rx Azithromycin [Zithromax Z-TERESA] 250 mg PO DAILY #6 tablet 11/11/18 Unknown Rx Famotidine [Pepcid] 20 mg PO BID #30 tablet 01/27/19 10/12/20 Rx HYDROcodone/APAP 5-325 [Burdick 1 - 2 each PO Q6HR PRN #10 tablet 10/12/20 Unknown Rx 5/325] Ibuprofen [Motrin 800 MG tab] 800 mg PO Q8HR PRN #20 tablet 10/12/20 Unknown Rx Ondansetron [Zofran ODT TAB] 8 mg PO Q8HR #20 tab.rapdis 10/12/20 Unknown Rx ED Review of Systems ROS: Stated complaint: CHEST PAIN, ELEVATED BLOOD PRESSURE Other details as noted in HPI Constitutional: denies: fever Eyes: denies: eye pain ENT: denies: throat pain Respiratory: denies: cough Cardiovascular: chest pain Endocrine: no symptoms reported Gastrointestinal: abdominal pain Genitourinary: denies: dysuria Musculoskeletal: denies: back pain Neurological: headache Physical Exam - Physical Exam Vital Signs: Vital Signs 10/12/20 16:03 Temperature 98.8 F Pulse Rate 77 Respiratory 20 Rate Blood Pressure 150/103 O2 Sat by Pulse 97 Oximetry Physical Exam: GENERAL: The patient is well-developed well-nourished []. [] HEENT: Normocephalic. Atraumatic. Extraocular motions are intact. 2 beats of nystagmus when looking to the extreme left lower extreme right. Patient has moist mucous membranes. NECK: Supple. No meningitic signs are noted. There is no nuchal rigidity CHEST/LUNGS: Clear to auscultation. There is no respiratory distress noted. HEART/CARDIOVASCULAR: Regular. There is no tachycardia. There is no gallop rub or murmur. 2+ left DP ABDOMEN: Abdomen is soft, nontender. Patient has normal bowel sounds. There is no abdominal distention. SKIN: There is no rash. There is no edema. There is no diaphoresis. NEURO: The patient is awake, alert, and oriented. The patient is cooperative. The patient has no focal neurologic deficits. The patient has normal speech. Cranial nerves II through XII grossly intact. Cranial nerves II through XII grossly intact. GCS 15 MUSCULOSKELETAL: There is left calf tenderness to palpation. There is no evidence of acute injury. ED Course Vital Signs 10/12/20 16:03 Temperature 98.8 F Pulse Rate 77 Respiratory 20 Rate Blood Pressure 150/103 O2 Sat by Pulse 97 Oximetry ED Medical Decision Making - Lab Data Result diagrams: 10/12/20 17:17 10/12/20 17:17 - EKG Data -: EKG Interpreted by Me EKG shows normal: sinus rhythm Rate: normal - EKG Data When compared to previous EKG there are: changes noted Interpretation: nonspecific ST-T wave annamaria (New T wave inversion in lead V4 when compared to previous EKG dated 01/27/2019) - Radiology Data Radiology results: report reviewed (Chest x-ray, CT chest, CT abdomen pelvis, CT head, left lower extremity Doppler), image reviewed (Chest x-ray, CT chest, CT abdomen pelvis, CT head, left lower extremity Doppler) interpreted by me: Chest x-ray-no focal infiltrates, no pneumothorax. No foreign body seen [address] [address] XRay Report Signed Patient: SELMA ANDERSON MR#: [id number] : 1975 Acct:[id number] Age/Sex: 45 / M ADM Date: 10/12/20 Loc: ED Attending Dr: Ordering Physician: JAYANT CARTER Date of Service: 10/12/20 Procedure(s): XR chest routine 2V Accession Number(s): [id number] cc: JAYANT CARTER Fluoro Time In Minutes: CHEST 2 VIEWS INDICATION: chest pain. COMPARISON: 02/11/2019 FINDINGS: Support devices: None. Heart: Within normal limits. Lungs: No acute air space or interstitial disease. Pleura: No significant pleural effusion. No pneumothorax. Additional findings: None. IMPRESSION: 1. No acute findings. Signer Name: Jw Marie MD Signed: 10/12/2020 5:01 PM Workstation Name: [id number] Transcribed By: Dictated By: Jw Marie MD Electronically Authenticated By: Jw Marie MD Signed Date/Time: 10/12/201700 DD/ 00 TD/TT: Print Cancel [address] [address] Cat Scan Report Signed Patient: SELMA ANDERSONOIT MR#: [id number] : 1975 Acct:[id number] Age/Sex: 45 / M ADM Date: 10/12/20 Loc: ED Attending Dr: Ordering Physician: ELIZABETH LEONARDO MD Date of Service: 10/12/20 Procedure(s): CT angio chest Accession Number(s): [id number] cc: ELIZABETH LEONARDO MD CTA CHEST WITH CONTRAST INDICATION / CLINICAL INFORMATION: Chest pain, elevated D-dimer. TECHNIQUE: Axial CT images were obtained through the chest after injection of IV contrast. 3 plane MIP and/or 3D reconstructions were produced. All CT scans at this location are performed using CT dose reduction for ALARA by means of automated exposure control. COMPARISON: CTA from 11/21/2018.. FINDINGS: PULMONARY ARTERIES: No central or segmental pulmonary embolus. THORACIC AORTA: No significant abnormality. HEART: No significant abnormality. ADENOPATHY: No significant adenopathy. LUNGS/PLEURA: No focal airspace consolidation. No pleural effusion. No pneumothorax. ADDITIONAL FINDINGS: None. UPPER ABDOMEN: No acute findings. SKELETAL STRUCTURES: No significant osseous abnormality. IMPRESSION: No acute findings in the chest. No evidence of pulmonary embolus. CT AP with INDICATION / CLINICAL INFORMATION: Epigastric tenderness.. TECHNIQUE: Axial CT images were obtained through the abdomen and pelvis after IV contrast. All CT scans at this location are performed using CT dose reduction for ALARA by means of automated exposure control. COMPARISON: CT from 11/21/2012. FINDINGS: LOWER CHEST: No significant abnormality LIVER: No significant abnormality GALLBLADDER/BILIARY TREE: No significant abnormality PANCREAS: No significant abnormality SPLEEN: No significant abnormality ADRENALS: No significant abnormality KIDNEYS / URETER: There is a right renal cyst. Kidneys enhance symmetrically. There is medullary nephrocalcinosis. No hydronephrosis. URINARY BLADDER: No significant abnormality REPRODUCTIVE ORGANS: No significant abnormality STOMACH / BOWEL: Stomach is decompressed without acute abnormality. Scattered borderline dilated loops of predominantly fluid-filled small bowel, may reflect enteritis. No evidence of bowel obstruction. The appendix is normal in caliber. LYMPH NODES: No significant adenopathy. VASCULATURE: No significant abnormality. OTHER: No free air, free fluid, or focal fluid collection is identified. SKELETAL SYSTEM: No acute osseous findings. IMPRESSION: 1. Bord ryanne dilated loops of predominantly fluid-filled small bowel, may reflect mild infectious or inflammatory enteritis. There is no evidence of bowel obstruction. 2. Otherwise, no acute abnormality of the abdomen or pelvis. 3. Additional chronic and incidental findings, as above. Signer Name: Rebecca Tolbert MD Signed: 10/12/2020 8:10 PM Workstation Name: [id number] Transcribed By: JUDSON Dictated By: REBECCA TOLBERT MD Electronically Authenticated By: REBECCA TOBLERT MD Signed Date/Time: 10/12/202009 DD/ 07 TD/TT: Print Cancel [facility] [address] [place] [address] Cat Scan Report Signed Patient: SELMA ANDERSONOIT MR#: [id number] : 1975 Acct:[id number] Age/Sex: 45 / M ADM Date: 10/12/20 Loc: ED Attending Dr: Ordering Physician: JAYANT CARTER Date of Service: 10/12/20 Procedure(s): CT head/brain wo con Accession Number(s): [id number] cc: JAYANT CARTER NONENHANCED CT SCAN OF THE HEAD: INDICATION / CLINICAL INFORMATION: 45 years Male; headache, hx HIV, (+) nystagmus. TECHNIQUE: Routine CT head without contrast. All CT scans at this location are performed using CT dose reduction for ALARA by means of automated exposure control. COMPARISON: Previous CT from 09/20/2009 and MRI scan from 07/20/2008 could not be retrieved FINDINGS: BRAIN / INTRACRANIAL CONTENTS: Left parietal craniotomy; focal area of encephalomalacia adjacent to craniotomy; compensatory enlargement of left lateral ventricle; dystrophic calcification near the encephalomalacia; No acute hemorrhage, mass effect, midline shift, hydrocephalus, or acute, large territorial infarct. Mild volume loss in the cerebellar hemispheres and in the left occipital lobe; No significant white matter abnormality. CRANIOCERVICAL JUNCTION: No significant abnormality. ORBITS: No significant abnormality of vis ualized orbits. SINUSES / MASTOIDS: No significant abnormality of the visualized paranasal sinuses or mastoid air cells. ADDITIONAL FINDINGS: Ectatic internal carotid and basilar arteries IMPRESSION: No acute focal parenchymal lesion Signer Name: Pilar Ricardo MD Signed: 10/12/2020 8:21 PM Workstation Name: [id number] Transcribed By: DONALD Dictated By: Pilar Sarmiento MD Electronically Authenticated By: Pilar Sarmiento MD Signed Date/Time: 10/12/202020 DD/ 13 TD/TT: [facility] [address] [place] [address] Vascular Lab Report Signed Patient: SELMA ANDERSON INES MR#: [id number] : 1975 Acct:[id number] Age/Sex: 45 / M ADM Date: 10/12/20 Loc: ED Attending Dr: Ordering Physician: ELIZABETH LEONARDO MD Date of Service: 10/12/20 Procedure(s): VL venous duplex LE LT Accession Number(s): [id number] cc: ELIZABETH LEONARDO MD DUPLEX DOPPLER LOWER EXTREMITY VEINS, LEFT INDICATION / CLINICAL INFORMATION: pain. TECHNIQUE: Duplex doppler imaging was performed through the veins of the left lower extremity using venous compression and other maneuvers. COMPARISON: None available. FINDINGS: LEFT COMMON FEMORAL VEIN: Negative. LEFT FEMORAL VEIN: Negative. LEFT POPLITEAL VEIN: Negative. LEFT CALF VEINS: Negative. ADDITIONAL FINDINGS: None. IMPRESSION: 1. No sonographic evidence for DVT in the left lower extremity. Signer Name: Rebecca Tolbert MD Signed: 10/12/2020 8:43 PM Workstation Name: [id number] Transcribed By: JUDSON Dictated By: REBECCA TOLBERT MD Electronically Authenticated By: REBECCA TOLBERT MD Signed Date/Time: 10/12/202042 DD/ 42 TD/TT: Print Cancel - Differential Diagnosis ACS, pericarditis, GERD, DVT, PE Critical care attestation.: If time is entered above; I have spent that time in minutes in the direct care of this critically ill patient, excluding procedure time. ED Disposition Clinical Impression: Atypical chest pain, Enteritis, Left leg pain Disposition: DC- TO HOME OR SELFCARE Is pt being admited?: No Does the pt Need Aspirin: No Condition: Stable Instructions: Nonspecific Chest Pain, Adult Additional Instructions: Return to the emergency department should you develop worsening symptoms, inability to tolerate food or liquids, high fever or any other concerns Prescriptions: Ibuprofen [Motrin 800 MG tab] 800 mg PO Q8HR PRN #20 tablet PRN Reason: Pain, Moderate (4-6) HYDROcodone/APAP 5-325 [Burdick 5/325] 1 - 2 each PO Q6HR PRN #10 tablet PRN Reason: Pain Ondansetron [Zofran ODT TAB] 8 mg PO Q8HR #20 tab.rapdis Referrals: PHILIP DEVINE MD [Primary Care Provider] - 3-5 Days Time of Disposition: 22:24 Heart Score - HEART Score History: Slightly suspicious EKG: Non-specific Age: < 45 Risk factors: 1-2 risk factors Troponin: < normal limit HEART Score: 2 - EKG Read Time Time EKG Completed: 15:48 EKG Read Time: 15:52
[2020-10-12 19:01] LABS: RBC Morphology Normal; Total Cells Counted 100
[2020-10-12 19:22] LABS: Amphetamine Screen,Urine Negative; Benzodiazepines Screen,Urine Negative; Cannabinoid Screen,Urine Negative; Cocaine Screen,Urine Negative; Methadone Screen,Urine Negative; Opiate Screen,Urine Negative
--- NOTE | 2020-10-12 20:15 | Cat Scan Report ---
CTA CHEST WITH CONTRAST INDICATION / CLINICAL INFORMATION: Chest pain, elevated D-dimer. TECHNIQUE: Axial CT images were obtained through the chest after injection of IV contrast. 3 plane KS P and/or 3D reconstructions were produced. All CT scans at this location are performed using CT dose reduction for ALARA by means of automated exposure control. COMPARISON: CTA from 11/21/2018.. FINDINGS: PULMONARY ARTERIES: No central or segmental pulmonary embolus. THORACIC AORTA: No significant abnormality. HEART: No significant abnormality. ADENOPATHY: No significant adenopathy. LUNGS/PLEURA: No focal airspace consolidation. No pleural effusion. No pneumothorax. ADDITIONAL FINDINGS: None. UPPER ABDOMEN: No acute findings. SKELETAL STRUCTURES: No significant osseous abnormality. IMPRESSION: No acute findings in the chest. No evidence of pulmonary embolus. CT AP with INDICATION / CLINICAL INFORMATION: Epigastric tenderness.. TECHNIQUE: Axial CT images were obtained through the abdomen and pelvis after IV contrast. All CT sc ans at this location are performed using CT dose reduction for [employer] by means of automated exposure c ontrol. COMPARISON: CT from 11/21/2012. FINDINGS: LOWER CHEST: No significant abnormality LIVER: No significant abnormality GALLBLADDER/BILIARY TREE: No significant abnormality PANCREAS: No significant abnormality SPLEEN: No significant abnormality ADRENALS: No significant abnormality KIDNEYS / URETER: There is a right renal cyst. Kidneys enhance symmetrically. 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 No hydronephrosis. URINARY BLADDER: No significant abnormality REPRODUCTIVE ORGANS: No significant abnormality STOMACH / BOWEL: Stomach is decompressed without acute abnormality. Scattered borderline dilated loop s of predominantly fluid-filled small bowel, may reflect enteritis. No evidence of bowel obstruction. The appendix is normal in caliber. LYMPH NODES: No significant adenopathy. VASCULATURE: No significant abnormality. OTHER: No free air, free fluid, or focal fluid collection is identified. SKELETAL SYSTEM: No acute osseous findings. IMPRESSION: 1. Borderline dilated loops of predominantly fluid-filled small bowel, may reflect mild infectious or inflammatory enteritis. There is no evidence of bowel obstruction. 2. Otherwise, no acute abnormality of the abdomen or pelvis. 3. Additional chronic and incidental findings, as above. Signer Name: Fritz Tolbert MD Signed: 10/12/2020 8:10 PM Workstation Name: [id number]
--- NOTE | 2020-10-12 20:15 | Cat Scan Report ---
CTA CHEST WITH CONTRAST INDICATION / CLINICAL INFORMATION: Chest pain, elevated D-dimer. TECHNIQUE: Axial CT images were obtained through the chest after injection of IV contrast. 3 plane NE P and/or 3D reconstructions were produced. All CT scans at this location are performed using CT dose reduction for ALARA by means of automated exposure control. COMPARISON: CTA from 11/21/2018.. FINDINGS: PULMONARY ARTERIES: No central or segmental pulmonary embolus. THORACIC AORTA: No significant abnormality. HEART: No significant abnormality. ADENOPATHY: No significant adenopathy. LUNGS/PLEURA: No focal airspace consolidation. No pleural effusion. No pneumothorax. ADDITIONAL FINDINGS: None. UPPER ABDOMEN: No acute findings. SKELETAL STRUCTURES: No significant osseous abnormality. IMPRESSION: No acute findings in the chest. No evidence of pulmonary embolus. CT AP with INDICATION / CLINICAL INFORMATION: Epigastric tenderness.. TECHNIQUE: Axial CT images were obtained through the abdomen and pelvis after IV contrast. All CT sc ans at this location are performed using CT dose reduction for [employer] by means of automated exposure c ontrol. COMPARISON: CT from 11/21/2012. FINDINGS: LOWER CHEST: No significant abnormality LIVER: No significant abnormality GALLBLADDER/BILIARY TREE: No significant abnormality PANCREAS: No significant abnormality SPLEEN: No significant abnormality ADRENALS: No significant abnormality KIDNEYS / URETER: There is a right renal cyst. Kidneys enhance symmetrically. 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 No hydronephrosis. URINARY BLADDER: No significant abnormality REPRODUCTIVE ORGANS: No significant abnormality STOMACH / BOWEL: Stomach is decompressed without acute abnormality. Scattered borderline dilated loop s of predominantly fluid-filled small bowel, may reflect enteritis. No evidence of bowel obstruction. The appendix is normal in caliber. LYMPH NODES: No significant adenopathy. VASCULATURE: No significant abnormality. OTHER: No free air, free fluid, or focal fluid collection is identified. SKELETAL SYSTEM: No acute osseous findings. IMPRESSION: 1. Borderline dilated loops of predominantly fluid-filled small bowel, may reflect mild infectious or inflammatory enteritis. There is no evidence of bowel obstruction. 2. Otherwise, no acute abnormality of the abdomen or pelvis. 3. Additional chronic and incidental findings, as above. Signer Name: Fritz Tolbert MD Signed: 10/12/2020 8:10 PM Workstation Name: [id number]
--- NOTE | 2020-10-12 20:25 | Cat Scan Report ---
NONENHANCED CT SCAN OF THE HEAD: INDICATION / CLINICAL INFORMATION: 45 years Male; headache, hx HIV, (+) nystagmus. TECHNIQUE: Routine CT head without contrast. All CT scans at this location are performed using CT dos e reduction for ALARA by means of automated exposure control. COMPARISON: Previous CT from 09/20/2009 and MRI scan from 07/20/2008 could not be retrieved FINDINGS: BRAIN / INTRACRANIAL CONTENTS: Left parietal craniotomy; focal area of encephalomalacia adjacent to c raniotomy; compensatory enlargement of left lateral ventricle; dystrophic calcification near the ence phalomalacia; No acute hemorrhage, mass effect, midline shift, hydrocephalus, or acute, large territo rial infarct. Mild volume loss in the cerebellar hemispheres and in the left occipital lobe; No signi ficant white matter abnormality. CRANIOCERVICAL JUNCTION: No significant abnormality. ORBITS: No significant abnormality of visualized orbits. SINUSES / MASTOIDS: No significant abnormality of the visualized paranasal sinuses or mastoid air lenin ls. ADDITIONAL FINDINGS: Ectatic internal carotid and basilar arteries IMPRESSION: No acute focal parenchymal lesion Signer Name: Pilar Ricardo MD Signed: 10/12/2020 8:21 PM Workstation Name: [id number]
--- NOTE | 2020-10-12 20:48 | Vascular Lab Report ---
DUPLEX DOPPLER LOWER EXTREMITY VEINS, LEFT INDICATION / CLINICAL INFORMATION: pain. TECHNIQUE: Duplex doppler imaging was performed through the veins of the left lower extremity using venous compr ession and other maneuvers. COMPARISON: None available. FINDINGS: LEFT COMMON FEMORAL VEIN: Negative. LEFT FEMORAL VEIN: Negative. LEFT POPLITEAL VEIN: Negative. LEFT CALF VEINS: Negative. ADDITIONAL FINDINGS: None. IMPRESSION: 1. No sonographic evidence for DVT in the left lower extremity. Signer Name: Fritz Tolbert MD Signed: 10/12/2020 8:43 PM Workstation Name: [id number]
[2020-10-12 21:33] VITALS: BP 160/118
--- NOTE | 2020-10-17 09:40 | Electrocardiograph Report ---
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
== END 2020-10-12 22:57 | disposition home or self-care (01) ==
LOC: ED 15:43
DX: K52.9 Noninfective gastroenteritis and colitis, unspecified (principal); M79.605 Pain in left leg; R07.89 Other chest pain; I10 Essential (primary) hypertension; F14.90 Cocaine use, unspecified, uncomplicated; Z79.899 Other long term (current) drug therapy; Z88.2 Allergy status to sulfonamides; Z88.6 Allergy status to analgesic agent; Z86.69 Personal history of other diseases of the nervous system and sense organs; Z21 Asymptomatic human immunodeficiency virus [HIV] infection status; Z87.891 Personal history of nicotine dependence; Z98.890 Other specified postprocedural states
CPT/HCPCS: 36415; 70450; 71046; 71275; 74177; 80053; 80307; 83735; 84484; 85007; 85025; 85379; 85610; 85730; 93005; 93971; 99285; Q9967; 80320; G0480

== ENCOUNTER 2020-11-02 12:39 | Emergency (ER) | payer MEDICARE ==
--- NOTE | 2020-11-02 14:09 | Event Note ---
ED Screening Note ED Screening Note: pt presents with CP, headache and sore throat September 2020 substernal CP states it feels like tightness states he has a dry cough states quit smoking 6 months ago states also has dizziness that is worse with head movement no n/v/d no fever PMHx HIV, herpes, HTN, CVA-no deficits, seizure-keppra allergy: sulfa, morphine This initial assessment/diagnostic orders/clinical plan/treatment(s) is/are subject to change based on patients health status, clinical progression and re- assessment by fellow clinical providers in the ED. Further treatment and workup at subsequent clinical providers discretion. Patient/guardian urged not to elope from the ED as their condition may be serious if not clinically assessed and managed. Initial orders include: CP protocol
[2020-11-02 14:32] LABS: Hematocrit 43.1 % (35.5-45.6); Hemoglobin 14.3 gm/dl (11.8-15.2); Mean Corpuscular HGB Conc 33 % (32-34); Mean Corpuscular Volume 88 fl (84-94); Platelet Count 210 K/mm3 (140-440); Red Blood Count 4.89 M/mm3 (3.65-5.03); Red Cell Distribution Width 14.7 % (13.2-15.2)
--- NOTE | 2020-11-02 14:35 | XRay Report ---
CHEST 2 VIEWS INDICATION / CLINICAL INFORMATION: Chest Pain. COMPARISON: 10/12/20. FINDINGS: SUPPORT DEVICES: None. HEART / MEDIASTINUM: The heart size and pulmonary vasculature are normal. There is mild aortic tortuo sity without aneurysm. LUNGS / PLEURA: No significant pulmonary or pleural abnormality. No pneumothorax. ADDITIONAL FINDINGS: There is slight chronic elevation of the left hemidiaphragm. IMPRESSION: No acute abnormality or significant change. Signer Name: Oliver Medeiros MD Signed: 11/02/2020 2:31 PM Workstation Name: [id number]
[2020-11-02 14:44] LABS: Alanine Aminotransferase 26 units/L (7-56); Albumin 3.9 g/dL (3.9-5); BUN/Creatinine Ratio 20; Blood Urea Nitrogen 22 mg/dL (9-20); Calcium 8.8 mg/dL (8.4-10.2); Hemolysis Index 7
[2020-11-02 15:28] LABS: Total Cells Counted 100
[2020-11-02 15:29] LABS: Platelet Estimate Consistent w Auto; Target Cells Few
--- NOTE | 2020-11-02 16:30 | Emergency Department Report ---
ED Chest Pain HPI - General Chief Complaint: Chest Pain Stated Complaint: SORETHROAT HEADACHE PUI?: No Time Seen by Provider: 11/02/20 14:06 Source: patient Mode of arrival: Ambulatory Limitations: No Limitations - History of Present Illness Initial Comments: Chief complaint: "I have been having this chest pain since my stroke in 2009." HPI: This is a 45-year-old male with history of HIV on ART, CVA, hypertension, seizures who presents with chest pain chronic headache. He has right-sided chest pain that feels like "tension and stress". He denies suicidal homicidal ideation. Pain is sharp constant at times intermittent at times. He also chronic headache which is unchanged. MD Complaint: chest pain -: year(s) (11-year since 2009) Onset: during rest Pain Location: substernal, right chest Severity: mild Quality: sharp Consistency: constant, intermittent Improves With: nothing Worsens With: nothing re: nausea Treatments Prior to Arrival: none - Related Data Home Medications Medication Instructions Recorded Confirmed Last Taken Valacyclovir HCl [Valtrex] 1,000 mg PO DAILY 06/09/14 06/09/14 10/12/20 carBAMazepine [TEGretol] 200 mg PO BID 06/09/14 06/09/14 10/12/20 Previous Rx's Medication Instructions Recorded Last Taken Type Ibuprofen [Motrin] 600 mg PO Q8H PRN #20 tablet 04/10/18 10/12/20 Rx Azithromycin [Zithromax Z-TERESA] 250 mg PO DAILY #6 tablet 11/11/18 Unknown Rx Famotidine [Pepcid] 20 mg PO BID #30 tablet 01/27/19 10/12/20 Rx HYDROcodone/APAP 5-325 [Branscomb 1 - 2 each PO Q6HR PRN #10 tablet 10/12/20 Unknown Rx 5/325] Ibuprofen [Motrin 800 MG tab] 800 mg PO Q8HR PRN #20 tablet 10/12/20 Unknown Rx Ondansetron [Zofran ODT TAB] 8 mg PO Q8HR #20 tab.rapdis 10/12/20 Unknown Rx Allergies Allergy/AdvReac Type Severity Reaction Status Date / Time Sulfa (Sulfonamide Allergy Mild Hives Verified 10/12/20 18:38 Antibiotics) morphine Allergy Hives Verified 11/11/18 14:56 Heart Score - HEART Score History: Slightly suspicious EKG: Non-specific Age: < 45 Risk factors: 1-2 risk factors Troponin: < normal limit HEART Score: 2 - EKG Read Time Time EKG Completed: 12:58 EKG Read Time: 12:58 ED Review of Systems ROS: Stated complaint: SORETHROAT HEADACHE Other details as noted in HPI Comment: All other systems reviewed and negative Constitutional: denies: fever, malaise Respiratory: denies: cough, shortness of breath Cardiovascular: chest pain Gastrointestinal: nausea Neurological: headache ED Past Medical Hx - Past Medical History Previous Medical History?: Yes Hx Hypertension: Yes Hx CVA: No Hx Heart Attack/AMI: No Hx Congestive Heart Failure: No Hx Diabetes: No Hx Deep Vein Thrombosis: No Hx Pulmonary Embolism: No Hx GERD: No Hx Liver Disease: No Hx Renal Disease: No Hx Sickle Cell Disease: No Hx Arthritis: No Hx Headaches / Migraines: No Hx Seizures: Yes Hx Kidney Stones: No Hx Psychiatric Treatment: No Hx Asthma: No Hx COPD: No Hx Tuberculosis: No Hx Dementia: No Hx HIV: Yes (States he was told all his counts were normal Spring 2020) - Surgical History Past Surgical History?: Yes Hx Coronary Stent: No Hx Open Heart Surgery: No Hx Pacemaker: No Hx Internal Defibrillator: No Hx Cholecystectomy: No Hx Appendectomy: No Hx Breast Surgery: No Additional Surgical History: hernia repair, craniotomy for "removal of [seizure focus]" - Social History Smoking Status: Former Smoker (None x6-month) Substance Use Type: Alcohol (Occasional), Cocaine (Last used cocaine in May 2020) - Medications Home Medications: Home Medications Medication Instructions Recorded Confirmed Last Taken Type Valacyclovir HCl [Valtrex] 1,000 mg PO DAILY 06/09/14 06/09/14 10/12/20 History carBAMazepine [TEGretol] 200 mg PO BID 06/09/14 06/09/14 10/12/20 History Ibuprofen [Motrin] 600 mg PO Q8H PRN #20 tablet 04/10/18 10/12/20 Rx Azithromycin [Zithromax Z-TERESA] 250 mg PO DAILY #6 tablet 11/11/18 Unknown Rx Famotidine [Pepcid] 20 mg PO BID #30 tablet 01/27/19 10/12/20 Rx HYDROcodone/APAP 5-325 [Branscomb 1 - 2 each PO Q6HR PRN #10 tablet 10/12/20 Unknown Rx 5/325] Ibuprofen [Motrin 800 MG tab] 800 mg PO Q8HR PRN #20 tablet 10/12/20 Unknown Rx Ondansetron [Zofran ODT TAB] 8 mg PO Q8HR #20 tab.rapdis 10/12/20 Unknown Rx ED Physical Exam - General Limitations: No Limitations General appearance: alert, in no apparent distress - Head Head exam: Present: atraumatic, normocephalic - Eye Eye exam: Present: normal appearance - ENT ENT exam: Present: mucous membranes moist - Neck Neck exam: Present: normal inspection, full ROM - Respiratory Respiratory exam: Present: normal lung sounds bilaterally. Absent: respiratory distress, wheezes, rales, rhonchi - Cardiovascular Cardiovascular Exam: Present: regular rate, normal rhythm, normal heart sounds. Absent: systolic murmur, diastolic murmur, rubs, gallop - GI/Abdominal GI/Abdominal exam: Present: soft, normal bowel sounds. Absent: distended, tenderness, guarding, rebound - Rectal Rectal exam: Present: deferred - Extremities Exam Extremities exam: Present: normal inspection - Neurological Exam Neurological exam: Present: alert, oriented X3 - Psychiatric Psychiatric exam: Present: normal affect, normal mood. Absent: depressed, homicidal ideation, suicidal ideation - Skin Skin exam: Present: warm, dry, intact, normal color. Absent: rash ED Course Vital Signs 11/02/20 12:48 Temperature 97.9 F Pulse Rate 92 H Respiratory 18 Rate Blood Pressure 151/110 O2 Sat by Pulse 97 Oximetry FRANKIE score - Frankie Score Age > 65: (0) No Aspirin use within the Past 7 Days: (0) No 3 or more CAD Risk Factors: (0) No 2 or more Angina events in past 24 hrs: (0) No Known CAD with more than 50% Stenosis: (0) No Elevated Cardiac Markers: (0) No ST Deviation Greater than 0.5mm: (0) No FRANKIE Score: 0 ED Medical Decision Making - Lab Data Result diagrams: 11/02/20 14:09 11/02/20 14:09 Laboratory Results - last 24 hr 11/02/20 11/02/20 11/02/20 14:09 14:09 14:09 WBC 3.4 L RBC 4.89 Hgb 14.3 Hct 43.1 MCV 88 MCH 29 MCHC 33 RDW 14.7 Plt Count 210 Add Manual Diff Complete Total Counted 100 Seg Neutrophils % Dry House Worker Seg Neuts % (Manual) 30.0 L Lymphocytes % (Manual) 58.0 H Reactive Lymphs % (Man) 1.0 Monocytes % (Manual) 9.0 H Eosinophils % (Manual) 2.0 Nucleated RBC % Not Reportable Seg Neutrophils # Man 1.0 L Band Neutrophils # 0.0 Lymphocytes # (Manual) 2.0 Abs React Lymphs (Man) 0.0 Monocytes # (Manual) 0.3 Eosinophils # (Manual) 0.1 Basophils # (Manual) 0.0 Metamyelocytes # 0.0 Myelocytes # 0.0 Promyelocytes # 0.0 Blast Cells # 0.0 WBC Morphology Not Reportable TNR Hypersegmented Neuts Not Reportable Hyposegmented Neuts Not Reportable Hypogranular Neuts Not Reportable Smudge Cells Not Reportable Toxic Granulation Not Reportable Toxic Vacuolation Not Reportable Dohle Bodies Not Reportable Pelger-Huet Anomaly Not Reportable Leonardo Rods Not Reportable Platelet Estimate Consistent w auto Clumped Platelets Not Reportable Plt Clumps, EDTA Not Reportable Large Platelets Not Reportable Giant Platelets Not Reportable Platelet Satelliting Not Reportable Plt Morphology Comment Not Reportable RBC Morphology Not Reportable Dimorphic RBCs Not Reportable Polychromasia Not Reportable Hypochromasia Not Reportable Poikilocytosis Not Reportable Anisocytosis Not Reportable Microcytosis Not Reportable Macrocytosis Not Reportable Spherocytes Not Reportable Pappenheimer Bodies Not Reportable Sickle Cells Not Reportable Target Cells Few Tear Drop Cells Not Reportable Ovalocytes Not Reportable Helmet Cells Not Reportable White-Hesston Bodies Not Reportable [place] Rings Not Reportable Mary Cells Not Reportable Bite Cells Not Reportable Crenated Cell Not Reportable Elliptocytes Not Reportable Acanthocytes (Spur) Not Reportable Rouleaux Not Reportable Hemoglobin C Crystals Not Reportable Schistocytes Not Reportable Malaria parasites Not Reportable Dylon Bodies Not Reportable Hem Pathologist Commnt No Sodium 142 Potassium 3.3 L Chloride 102.3 Carbon Dioxide 29 Anion Gap 14 BUN 22 H Creatinine 1.1 Estimated GFR > 60 BUN/Creatinine Ratio 20 Glucose 96 Calcium 8.8 Total Bilirubin 0.40 AST 27 ALT 26 Alkaline Phosphatase 65 Troponin T < 0.010 Total Protein 6.7 Albumin 3.9 Albumin/Globulin Ratio 1.4 - EKG Data -: EKG Interpreted by Me EKG shows normal: sinus rhythm, axis Rate: normal - EKG Data Interpretation: nonspecific ST-T wave annamaria 11/02/20 16:26 EKG obtained 1258 EKG interpreted by me NSR 85 bpm nl axis prolonged qtc no ST elevation - Radiology Data Radiology results: report reviewed [facility] [address] [place] [address] XRay Report Signed Patient: SELMA ANDERSONOIT MR#: [id number] : 1975 Acct:[id number] Age/Sex: 45 / M ADM Date: 11/02/20 Loc: ED Attending Dr: Ordering Physician: JAYANT SALOMON Date of Service: 11/02/20 Procedure(s): XR chest routine 2V Accession Number(s): [id number] cc: JAYANT SALOMON Fluoro Time In Minutes: CHEST 2 VIEWS INDICATION / CLINICAL INFORMATION: Chest Pain. COMPARISON: 10/12/20. FINDINGS: SUPPORT DEVICES: None. HEART / MEDIASTINUM: The heart size and pulmonary vasculature are normal. There is mild aortic tortuosity without aneurysm. LUNGS / PLEURA: No significant pulmonary or pleural abnormality. No pneumothorax. ADDITIONAL FINDINGS: There is slight chronic elevation of the left hemidiaphragm. IMPRESSION: No acute abnormality or significant change. Signer Name: Oliver Medeiros MD Signed: 11/02/2020 2:31 PM Workstation Name: [id number] Transcribed By: RT Dictated By: Oliver Medeiros MD Electronically Authenticated By: Oliver Medeirso MD Signed Date/Time: 11/02/20 143 DD/ 1430 TD/TT: - Medical Decision Making 1. Chest pain: Atypical for ACS, PERC negative for PE. Suspect GERD with associated nausea. Refer to cardiology with faxed referral request to [facility]. 2. Chronic headache: Unchanged for patient. Recommended outpatient medicine physician. Patient needs primary care. He does follow infectious disease physician. Critical care attestation.: If time is entered above; I have spent that time in minutes in the direct care of this critically ill patient, excluding procedure time. ED Disposition Clinical Impression: GERD (gastroesophageal reflux disease), Tension headache Disposition: DC-01 TO HOME OR SELFCARE Is pt being admited?: No Does the pt Need Aspirin: No Condition: Stable Instructions: Gastroesophageal Reflux Disease, Adult, [id number], Tension Headache, Adult Referrals: PATRICIA TUTTLE MD [Staff Physician] - 3-5 Days MARELY DURAN MD [Staff Physician] - 3-5 Days Forms: Work/School Release Form(ED)
[2020-11-02 16:34] VITALS: BP 148/108
--- NOTE | 2020-11-04 17:53 | Electrocardiograph Report ---
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
== END 2020-11-02 16:34 | disposition home or self-care (01) ==
LOC: ED 12:39
DX: K21.9 Gastro-esophageal reflux disease without esophagitis (principal); G44.209 Tension-type headache, unspecified, not intractable; I10 Essential (primary) hypertension; Z98.890 Other specified postprocedural states; Z79.899 Other long term (current) drug therapy; Z87.891 Personal history of nicotine dependence; Z88.2 Allergy status to sulfonamides; Z88.8 Allergy status to other drugs, medicaments and biological substances
CPT/HCPCS: 36415; 71046; 80053; 84484; 85007; 85025; 93005

== ENCOUNTER 2021-02-18 09:51 | Emergency (ER) | payer MEDICARE ==
[2021-02-18] MEDS ORDERED: levETIRAcetam 500 MG TAB PO ONE (10:13)
[2021-02-18] MEDS ORDERED: LORazepam 2 MG/ML VIAL IM ONE (10:14)
--- NOTE | 2021-02-18 10:15 | Emergency Department Report ---
ED General Adult HPI - General Chief complaint: Seizure Stated complaint: SEIZURE Time Seen by Provider: 02/18/21 10:08 Source: patient Mode of arrival: Stretcher Limitations: No Limitations - History of Present Illness Initial comments: Patient presents to the emergency department via EMS status post seizure. [place] experiencing a seizure. Patient states the lights from the car triggered his seizure activity. Patient endorses to taking his seizure medication daily but cannot tell me the name of his medications. Patient denies any chest pain, shortness breath, or headache. -: Sudden Location: head Severity scale (0 -10): 0 Consistency: now resolved Improves with: none Worsens with: none Associated Symptoms: denies other symptoms Treatments Prior to Arrival: none - Related Data Home Medications Medication Instructions Recorded Confirmed Last Taken Valacyclovir HCl [Valtrex] 1,000 mg PO DAILY 06/09/14 06/09/14 10/12/20 carBAMazepine [TEGretol] 200 mg PO BID 06/09/14 06/09/14 10/12/20 Previous Rx's Medication Instructions Recorded Last Taken Type Ibuprofen [Motrin] 600 mg PO Q8H PRN #20 tablet 04/10/18 10/12/20 Rx Azithromycin [Zithromax Z-TERESA] 250 mg PO DAILY #6 tablet 11/11/18 Unknown Rx Famotidine [Pepcid] 20 mg PO BID #30 tablet 01/27/19 10/12/20 Rx HYDROcodone/APAP 5-325 [[place] 1 - 2 each PO Q6HR PRN #10 tablet 10/12/20 Unknown Rx 5/325] Ibuprofen [Motrin 800 MG tab] 800 mg PO Q8HR PRN #20 tablet 10/12/20 Unknown Rx Ondansetron [Zofran ODT TAB] 8 mg PO Q8HR #20 tab.rapdis 10/12/20 Unknown Rx Allergies Allergy/AdvReac Type Severity Reaction Status Date / Time Sulfa (Sulfonamide Allergy Mild Hives Verified 10/12/20 18:38 Antibiotics) morphine Allergy Hives Verified 11/11/18 14:56 ED Review of Systems ROS: Stated complaint: SEIZURE Other details as noted in HPI Comment: All other systems reviewed and negative Constitutional: denies: chills, fever Eyes: denies: eye pain, eye discharge, vision change ENT: denies: ear pain, throat pain Respiratory: denies: cough, shortness of breath, wheezing Cardiovascular: denies: chest pain, palpitations Endocrine: no symptoms reported Gastrointestinal: denies: abdominal pain, nausea, diarrhea Genitourinary: denies: urgency, dysuria Musculoskeletal: denies: back pain, joint swelling, arthralgia Skin: denies: rash, lesions Neurological: denies: headache, weakness, paresthesias Psychiatric: denies: anxiety, depression Hematological/Lymphatic: denies: easy bleeding, easy bruising ED Past Medical Hx - Past Medical History Previous Medical History?: Yes Hx Hypertension: Yes Hx CVA: No Hx Heart Attack/AMI: No Hx Congestive Heart Failure: No Hx Diabetes: No Hx Deep Vein Thrombosis: No Hx Pulmonary Embolism: No Hx GERD: No Hx Liver Disease: No Hx Renal Disease: No Hx Sickle Cell Disease: No Hx Arthritis: No Hx Headaches / Migraines: No Hx Seizures: Yes Hx Kidney Stones: No Hx Psychiatric Treatment: No Hx Asthma: No Hx COPD: No Hx Tuberculosis: No Hx Dementia: No Hx HIV: Yes (States he was told all his counts were normal Spring 2020) - Surgical History Hx Coronary Stent: No Hx Open Heart Surgery: No Hx Pacemaker: No Hx Internal Defibrillator: No Hx Cholecystectomy: No Hx Appendectomy: No Hx Breast Surgery: No Additional Surgical History: hernia repair, craniotomy for "removal of [seizure focus]" - Social History Smoking Status: Former Smoker (None x6-month) Substance Use Type: Alcohol (Occasional), Cocaine (Last used cocaine in May 2020) - Medications Home Medications: Home Medications Medication Instructions Recorded Confirmed Last Taken Type Valacyclovir HCl [Valtrex] 1,000 mg PO DAILY 06/09/14 06/09/14 10/12/20 History carBAMazepine [TEGretol] 200 mg PO BID 06/09/14 06/09/14 10/12/20 History Ibuprofen [Motrin] 600 mg PO Q8H PRN #20 tablet 04/10/18 10/12/20 Rx Azithromycin [Zithromax Z-TERESA] 250 mg PO DAILY #6 tablet 11/11/18 Unknown Rx Famotidine [Pepcid] 20 mg PO BID #30 tablet 01/27/19 10/12/20 Rx HYDROcodone/APAP 5-325 [[place] 1 - 2 each PO Q6HR PRN #10 tablet 10/12/20 Unknown Rx 5/325] Ibuprofen [Motrin 800 MG tab] 800 mg PO Q8HR PRN #20 tablet 10/12/20 Unknown Rx Ondansetron [Zofran ODT TAB] 8 mg PO Q8HR #20 tab.rapdis 10/12/20 Unknown Rx ED Physical Exam - General Limitations: No Limitations General appearance: alert, in no apparent distress - Head Head exam: Present: normocephalic, other (Ecchymosis and abrasions to the face) - Eye Eye exam: Present: normal appearance - ENT ENT exam: Present: mucous membranes moist, other (Bleeding from the left nasal nare) - Neck Neck exam: Present: normal inspection - Respiratory Respiratory exam: Present: normal lung sounds bilaterally. Absent: respiratory distress - Cardiovascular Cardiovascular Exam: Present: regular rate, normal rhythm. Absent: systolic murmur, diastolic murmur, rubs, gallop - GI/Abdominal GI/Abdominal exam: Present: soft, normal bowel sounds - Rectal Rectal exam: Present: deferred - Extremities Exam Extremities exam: Present: normal inspection - Back Exam Back exam: Present: normal inspection - Neurological Exam Neurological exam: Present: alert, oriented X3, CN II-XII intact. Absent: motor sensory deficit - Psychiatric Psychiatric exam: Present: normal affect, normal mood - Skin Skin exam: Present: warm, dry, intact, normal color. Absent: rash ED Course Vital Signs 02/18/21 02/18/21 02/18/21 10:02 11:49 11:50 Temperature 98.2 F Pulse Rate 111 H 96 H Respiratory 18 16 Rate Blood Pressure 167/125 144/96 [Right] O2 Sat by Pulse 94 100 100 Oximetry ED Medical Decision Making - Medical Decision Making Patient given Keppra and Ativan Critical care attestation.: If time is entered above; I have spent that time in minutes in the direct care of this critically ill patient, excluding procedure time. ED Disposition Clinical Impression: Seizure, Epistaxis Disposition: HOME / SELF CARE / HOMELESS Is pt being admited?: No Does the pt Need Aspirin: No Condition: Stable Instructions: Seizure, Adult Additional Instructions: return if worse Referrals: MARELY DURAN MD [Staff Physician] - 3-5 Days Time of Disposition: 12:10
[2021-02-18] MEDS ORDERED: hydrALAZINE 10 MG TAB PO ONE (10:21)
--- NOTE | 2021-02-18 10:47 | Cat Scan Report ---
CT head/brain wo con INDICATION: seizure with head trauma. TECHNIQUE: Routine CT head without contrast. All CT scans at this location are performed using CT dose reduction for ALARA by means of automated exposure control. COMPARISON: Head CT on 10/12/2020 FINDINGS: BRAIN / INTRACRANIAL CONTENTS: No acute hemorrhage, brain edema, mass effect, or hydrocephalus. Kelly l oliva-white differentiation. 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 There is stable mild global atrophy which is greater th an expected given the patient's age. CALVARIUM/SKULL BASE/CRANIOCERVICAL JUNCTION: No evidence of fracture. ORBITS: No significant abnormality of visualized orbits. SINUSES / MASTOIDS: No significant abnormality of visualized sinuses and mastoid air cells. ADDITIONAL FINDINGS: None. IMPRESSION: 1. No acute intracranial abnormality. No adverse change from the prior exam. Signer Name: Juan Simon MD Signed: 02/18/2021 10:42 AM Workstation Name: [id number]
[2021-02-18 11:50] VITALS: BP 144/96
== END 2021-02-18 12:40 | disposition home or self-care (01) ==
LOC: ED 09:51
DX: R56.9 Unspecified convulsions (principal); R04.0 Epistaxis; I10 Essential (primary) hypertension; Z87.891 Personal history of nicotine dependence; Z72.89 Other problems related to lifestyle; Z79.899 Other long term (current) drug therapy; Z88.2 Allergy status to sulfonamides; Z88.8 Allergy status to other drugs, medicaments and biological substances; Z88.5 Allergy status to narcotic agent
CPT/HCPCS: 70450; 96372; 99284; J2060

== ENCOUNTER 2021-07-20 00:33 | Observation (INO) | payer MEDICARE ==
[2021-07-20] MEDS ORDERED: HYDROmorphone 2 MG/1 ML INJ IV ONE (01:10)
[2021-07-20] MEDS: cloNIDine 0.2 MG TAB PO ONE ×2 (01:22→19:57)
[2021-07-20] MEDS: ONDANSETRON 4 MG/2 ML INJ IV ONE ×2 (01:22→19:57)
--- NOTE | 2021-07-20 01:44 | Cat Scan Report ---
CT HEAD WITHOUT CONTRAST INDICATION / CLINICAL INFORMATION: Altered mental status. TECHNIQUE: CT head was performed without administration of intravenous contrast. All CT scans at this location are performed using CT dose reduction for ALARA by means of automated exposure control. COMPARISON: CT head 02/18/2021 FINDINGS: CEREBRAL PARENCHYMA: Generalized cortical and central atrophy. Periventricular regions of white matte r hypoattenuation compatible with microvascular ischemia. Remote focus of encephalomalacia left parie jericho cortex is stable. HEMORRHAGE: None. EXTRA-AXIAL SPACES: Normal in size and morphology for the patient's age. VENTRICULAR SYSTEM: Normal in size and morphology for the patient's age. MIDLINE SHIFT / HERNIATION: None. CEREBELLUM / BRAINSTEM: No significant abnormality. ORBITS: Normal as visualized. SOFT TISSUES: No significant abnormality. SKULL: Stable left parietal craniotomy defect. PARANASAL SINUSES / MASTOID AIR CELLS: Normal as visualized. ADDITIONAL FINDINGS: Stable dolichoectasia of the vertebrobasilar confluence. IMPRESSION: 1. No acute intracranial abnormality. Stable postoperative changes from left parietal craniotomy with underlying parietal encephalomalacia. Additional stable in appearance. Signer Name: Victor Manuel Narayanan II, MD Signed: 07/20/2021 1:40 AM Workstation Name: [id number]
[2021-07-20 02:10] LABS: Basophils % (Auto) 0.6 % (0.0-1.8); Eosinophils # (Auto) 0.1 K/mm3 (0.0-0.4); Eosinophils % (Auto) 1.3 % (0.0-4.3); Hematocrit 42.4 % (35.5-45.6); Hemoglobin 14.1 gm/dl (11.8-15.2); Lymphocytes # (Auto) 2.8 K/mm3 (1.2-5.4); Lymphocytes % (Auto) 45.4 % (13.4-35.0); Mean Corpuscular HGB Conc 33 % (32-34); Mean Corpuscular Volume 84 fl (84-94); Monocytes # (Auto) 0.6 K/mm3 (0.0-0.8); Monocytes % (Auto) 9.3 % (0.0-7.3); Platelet Count 254 K/mm3 (140-440); Red Blood Count 5.06 M/mm3 (3.65-5.03); Red Cell Distribution Width 16.2 % (13.2-15.2)
[2021-07-20] MEDS ORDERED: diphenhydrAMINE 50 MG/ML VIAL IV ONE (02:30)
[2021-07-20 02:53] LABS: Alanine Aminotransferase 14 units/L (7-56); Albumin 3.8 g/dL (3.9-5); BUN/Creatinine Ratio 21; Blood Urea Nitrogen 21 mg/dL (9-20); Calcium 9.4 mg/dL (8.4-10.2); Hemolysis Index 12
[2021-07-20] MEDS: POTASSIUM CHLORIDE ER 20 MEQ TAB PO ONE ×2 (04:17→19:58)
[2021-07-20] MEDS: diphenhydrAMINE 50 MG/ML VIAL IV ONE ×2 (04:18→19:58)
--- NOTE | 2021-07-20 04:25 | Emergency Department Report ---
ED Headache HPI - General Chief Complaint: Headache Stated Complaint: HIGH BP/HEADACHE Time Seen by Provider: 07/20/21 00:52 Exam Limitations: no limitations - History of Present Illness Timing/Duration: 24 hours Quality: severe (Sharp and pressure-like around the left temporal and periorbital area) Head Injury Location: temporal, global Associated Symptoms: facial pain, nausea/vomiting. denies: confusion, seizures, stiff neck Allergies/Adverse Reactions: Allergies Sulfa (Sulfonamide Antibiotics) Allergy (Mild, Verified 10/12/20 18:38) Hives morphine Allergy (Verified 11/11/18 14:56) Hives Home Medications: Ambulatory Orders Valacyclovir HCl [Valtrex] 1,000 mg PO DAILY 06/09/14 carBAMazepine [TEGretol] 200 mg PO BID 06/09/14 Ibuprofen [Motrin] 600 mg PO Q8H PRN #20 tablet 04/10/18 Azithromycin [Zithromax Z-TREESA] 250 mg PO DAILY #6 tablet 11/11/18 Famotidine [Pepcid] 20 mg PO BID #30 tablet 01/27/19 HYDROcodone/APAP 5-325 [[place] 5/325] 1 - 2 each PO Q6HR PRN #10 tablet 10/12/20 Ibuprofen [Motrin 800 MG tab] 800 mg PO Q8HR PRN #20 tablet 10/12/20 Ondansetron [Zofran ODT TAB] 8 mg PO Q8HR #20 tab.rapdis 10/12/20 ED Review of Systems ROS: Stated complaint: HIGH BP/HEADACHE Other details as noted in HPI Comment: All other systems reviewed and negative Constitutional: denies: chills, fever Eyes: eye pain. denies: vision change ENT: denies: throat pain, dental pain Respiratory: denies: cough, shortness of breath, wheezing Cardiovascular: denies: chest pain, palpitations Endocrine: no symptoms reported Gastrointestinal: nausea, vomiting. denies: abdominal pain Genitourinary: as per HPI Musculoskeletal: denies: back pain, joint swelling, arthralgia Skin: denies: rash, lesions Neurological: headache, numbness (Left periorbital area). denies: weakness Hematological/Lymphatic: denies: easy bleeding, easy bruising ED Past Medical Hx - Past Medical History Previous Medical History?: Yes Hx Hypertension: Yes Hx CVA: No Hx Heart Attack/AMI: No Hx Congestive Heart Failure: No Hx Diabetes: No Hx Deep Vein Thrombosis: No Hx Pulmonary Embolism: No Hx GERD: No Hx Liver Disease: No Hx Renal Disease: No Hx Sickle Cell Disease: No Hx Arthritis: No Hx Headaches / Migraines: No Hx Seizures: Yes Hx Kidney Stones: No Hx Psychiatric Treatment: No Hx Asthma: No Hx COPD: No Hx Tuberculosis: No Hx Dementia: No Hx HIV: Yes (States he was told all his counts were normal Spring 2020) - Surgical History Past Surgical History?: Yes Hx Coronary Stent: No Hx Open Heart Surgery: No Hx Pacemaker: No Hx Internal Defibrillator: No Hx Cholecystectomy: No Hx Appendectomy: No Hx Breast Surgery: No Additional Surgical History: hernia repair, craniotomy for "removal of [seizure focus]" - Social History Smoking Status: Never Smoker Substance Use Type: None - Medications Home Medications: Home Medications Medication Instructions Recorded Confirmed Last Taken Type Valacyclovir HCl [Valtrex] 1,000 mg PO DAILY 06/09/14 07/20/21 10/12/20 History carBAMazepine [TEGretol] 200 mg PO BID 06/09/14 07/20/21 10/12/20 History Ibuprofen [Motrin] 600 mg PO Q8H PRN #20 tablet 04/10/18 07/20/21 10/12/20 Rx Azithromycin [Zithromax Z-TERESA] 250 mg PO DAILY #6 tablet 11/11/18 07/20/21 Unknown Rx Famotidine [Pepcid] 20 mg PO BID #30 tablet 01/27/19 07/20/21 10/12/20 Rx HYDROcodone/APAP 5-325 [[place] 1 - 2 each PO Q6HR PRN #10 tablet 10/12/20 07/20/21 Unknown Rx 5/325] Ibuprofen [Motrin 800 MG tab] 800 mg PO Q8HR PRN #20 tablet 10/12/20 07/20/21 Unknown Rx Ondansetron [Zofran ODT TAB] 8 mg PO Q8HR #20 tab.rapdis 10/12/20 07/20/21 Unknown Rx ED Physical Exam - General Limitations: No Limitations General appearance: alert, in distress (Secondary to pain) - Head Head exam: Present: atraumatic, normocephalic - Eye Eye exam: Present: normal appearance, PERRL, EOMI - ENT ENT exam: Present: mucous membranes moist - Neck Neck exam: Present: normal inspection. Absent: tenderness, meningismus - Respiratory Respiratory exam: Present: normal lung sounds bilaterally. Absent: respiratory distress - Cardiovascular Cardiovascular Exam: Present: regular rate, normal rhythm. Absent: systolic murmur, diastolic murmur, rubs, gallop - GI/Abdominal GI/Abdominal exam: Present: soft, normal bowel sounds. Absent: distended, tenderness - Rectal Rectal exam: Present: deferred - Extremities Exam Extremities exam: Present: normal inspection, full ROM, normal capillary refill. Absent: tenderness - Back Exam Back exam: Present: normal inspection - Neurological Exam Neurological exam: Present: alert, oriented X3 - Skin Skin exam: Present: warm ED Course Vital Signs 07/20/21 07/20/21 07/20/21 00:41 01:22 01:57 Temperature 97.9 F Pulse Rate 99 H 91 H 71 Respiratory 18 18 Rate Blood Pressure 178/136 186/102 Blood Pressure 168/117 [Left] O2 Sat by Pulse 100 100 Oximetry 07/20/21 07/20/21 07/20/21 04:18 05:59 07:05 Temperature Pulse Rate 71 120 H Respiratory 20 20 Rate Blood Pressure Blood Pressure 156/108 126/90 [Left] O2 Sat by Pulse 100 100 100 Oximetry ED Medical Decision Making - Lab Data Result diagrams: 07/20/21 01:46 07/20/21 01:46 The CBC is normal. The chemistries demonstrate a mild hypokalemia - Radiology Data Radiology results: report reviewed, image reviewed No evidence of bleed or mass. Findings consistent with a previous craniotomy. - Medical Decision Making The patient was initially given Catapres on presentation to the treatment area. This resulted in very little response. For his severe headache he was given Dilaudid 2 mg and subsequently developed some itching. The patient has a his tory of allergy to morphine. He was later given hydralazine 25 mg likely with good response. The decision however was made to admit the patient for stabilization of his blood pressure and placement on the appropriate medications for discharge. Critical care attestation.: If time is entered above; I have spent that time in minutes in the direct care of this critically ill patient, excluding procedure time. ED Disposition Clinical Impression: Hypertensive urgency, Headache Disposition: ADMITTED INPATIENT Is pt being admited?: Yes Does the pt Need Aspirin: No Condition: Stable
[2021-07-20] MEDS ORDERED: hydrALAZINE 20 MG/1 ML INJ IV ONE (04:33)
[2021-07-20] MEDS ORDERED: ALBUTEROL 2.5 MG/3 ML NEBU IH PRN (05:41)
[2021-07-20] MEDS ORDERED: MORPHINE 2 MG/1 ML INJ IV PRN (05:41)
[2021-07-20] MEDS ORDERED: ONDANSETRON 4 MG/2 ML INJ IV PRN (05:41)
[2021-07-20] MEDS ORDERED: hydrALAZINE 20 MG/1 ML INJ IV PRN (05:44)
--- NOTE | 2021-07-20 05:49 | History and Physical Report ---
History of Present Illness Date of examination: 07/20/21 Date of admission: 07/20/21 Chief complaint: Headache uncontrolled blood pressure History of present illness: 46 years old male with history of hypertension, HIV and seizure disorder was brought to the emergency room because of headache which is sharp and pressure- like around the left temporal and periorbital area for the last 24 hours associated with facial pain nausea vomiting. In the emergency room patient is also found to have blood pressure of 178/136, initial CT scan of the head shows no acute intracranial abnormality. We are going to admit the patient we will put the patient on blood pressure medication. Patient denied any chest pain no shortness of breath no other complaint. Past History Past Medical History: hypertension, seizures, other (HIV) Past Surgical History: Other (hernia repair, craniotomy for "removal of [seizure focus]") Social history: other (Never a smoker) Family history: no significant family history Medications and Allergies Allergies Allergy/AdvReac Type Severity Reaction Status Date / Time Sulfa (Sulfonamide Allergy Mild Hives Verified 10/12/20 18:38 Antibiotics) morphine Allergy Hives Verified 11/11/18 14:56 Home Medications Medication Instructions Recorded Confirmed Last Taken Type Valacyclovir HCl [Valtrex] 1,000 mg PO DAILY 06/09/14 06/09/14 10/12/20 History carBAMazepine [TEGretol] 200 mg PO BID 06/09/14 06/09/14 10/12/20 History Ibuprofen [Motrin] 600 mg PO Q8H PRN #20 tablet 04/10/18 10/12/20 Rx Azithromycin [Zithromax Z-TERESA] 250 mg PO DAILY #6 tablet 11/11/18 Unknown Rx Famotidine [Pepcid] 20 mg PO BID #30 tablet 01/27/19 10/12/20 Rx HYDROcodone/APAP 5-325 [[place] 1 - 2 each PO Q6HR PRN #10 tablet 10/12/20 Unknown Rx 5/325] Ibuprofen [Motrin 800 MG tab] 800 mg PO Q8HR PRN #20 tablet 10/12/20 Unknown Rx Ondansetron [Zofran ODT TAB] 8 mg PO Q8HR #20 tab.rapdis 10/12/20 Unknown Rx Active Meds: Active Medications Acetaminophen (Acetaminophen 325 Mg Tab) 650 mg PO Q4H PRN PRN Reason: Pain MILD(1-3)/Fever >100.5/[place] Albuterol (Albuterol 2.5 Mg/3 Ml Nebu) 2.5 mg IH Q3HRT PRN PRN Reason: Shortness Of Breath Albuterol/Ipratropium (Ipratropium/Albuterol Sulfate 3 Ml Ampul.Neb) 1 ampul IH Q6HRT [facility] Azithromycin (Azithromycin 250 Mg Tab) 250 mg PO DAILY [facility]; Protocol Carbamazepine (Carbamazepine 200 Mg Tab) 200 mg PO BID [facility] Famotidine (Famotidine 20 Mg/2 Ml Inj) 20 mg IV BID [facility] Hydralazine HCl (Hydralazine 20 Mg/1 Ml Inj) 10 mg IV Q6H PRN PRN Reason: Blood Pressure Hydromorphone HCl (Hydromorphone 1 Mg/1 Ml Inj) 0.5 mg IV Q3H PRN PRN Reason: Pain , Severe (7-10) Lisinopril (Lisinopril 10 Mg Tab) 10 mg PO QDAY [facility] Miscellaneous Medication (Valacyclovir Hcl [Valtrex]) 1,000 mg PO DAILY [facility] Morphine Sulfate (Morphine 2 Mg/1 Ml Inj) 2 mg IV Q4H PRN PRN Reason: Pain, Moderate (4-6) Ondansetron HCl (Ondansetron 4 Mg/2 Ml Inj) 4 mg IV Q8H PRN PRN Reason: Nausea And Vomiting Sodium Chloride (Sodium Chloride 0.9% 10 Ml Flush Syringe) 10 ml IV BID [facility] Sodium Chloride (Sodium Chloride 0.9% 10 Ml Flush Syringe) 10 ml IV PRN PRN PRN Reason: LINE FLUSH Review of Systems Constitutional: fatigue, other (Facial pain) Gastrointestinal: nausea, vomiting Neurological: numbness, headaches Exam - Constitutional Vitals: Temp Pulse Resp BP Pulse Ox 97.9 F 71 20 156/108 100 07/20/21 00:41 07/20/21 04:18 07/20/21 04:18 07/20/21 04:18 07/20/21 04:18 General appearance: Present: no acute distress, well-nourished - EENT Eyes: Present: PERRL ENT: hearing intact, clear oral mucosa - Neck Neck: Present: supple, normal ROM - Respiratory Respiratory effort: normal Respiratory: bilateral: CTA - Cardiovascular Heart Sounds: Present: S1 & S2. Absent: rub, click - Extremities Extremities: pulses symmetrical, No edema Peripheral Pulses: within normal limits - Abdominal General gastrointestinal: Present: soft, non-tender, non-distended, normal bowel sounds Male genitourinary: Present: normal - Integumentary Integumentary: Present: clear, warm, dry - Musculoskeletal Musculoskeletal: gait normal, strength equal bilaterally - Psychiatric Psychiatric: appropriate mood/affect, intact judgment & insight - Neurologic Neurologic: CNII-XII intact, moves all extremities Results - Labs CBC & Chem 7: 07/20/21 01:46 07/20/21 01:46 Labs: Laboratory Last Values WBC 6.2 K/mm3 (4.5-11.0) 07/20/21 01:46 RBC 5.06 M/mm3 (3.65-5.03) H 07/20/21 01:46 Hgb 14.1 gm/dl (11.8-15.2) 07/20/21 01:46 Hct 42.4 % (35.5-45.6) 07/20/21 01:46 MCV 84 fl (84-94) 07/20/21 01:46 MCH 28 pg (28-32) 07/20/21 01:46 MCHC 33 % (32-34) 07/20/21 01:46 RDW 16.2 % (13.2-15.2) H 07/20/21 01:46 Plt Count 254 K/mm3 (140-440) 07/20/21 01:46 Lymph % (Auto) 45.4 % (13.4-35.0) H 07/20/21 01:46 [place] % (Auto) 9.3 % (0.0-7.3) H 07/20/21 01:46 Eos % (Auto) 1.3 % (0.0-4.3) 07/20/21 01:46 Baso % (Auto) 0.6 % (0.0-1.8) 07/20/21 01:46 Lymph # (Auto) 2.8 K/mm3 (1.2-5.4) 07/20/21 01:46 [place] # (Auto) 0.6 K/mm3 (0.0-0.8) 07/20/21 01:46 Eos # (Auto) 0.1 K/mm3 (0.0-0.4) 07/20/21 01:46 Baso # (Auto) 0.0 K/mm3 (0.0-0.1) 07/20/21 01:46 Seg Neutrophils % 43.4 % (40.0-70.0) 07/20/21 01:46 Seg Neutrophils # 2.7 K/mm3 (1.8-7.7) 07/20/21 01:46 Sodium 138 mmol/L (137-145) 07/20/21 01:46 Potassium 3.0 mmol/L (3.6-5.0) L 07/20/21 01:46 Chloride 94.6 mmol/L (98-107) L 07/20/21 01:46 Carbon Dioxide 32 mmol/L (22-30) H 07/20/21 01:46 Anion Gap 14 mmol/L 07/20/21 01:46 BUN 21 mg/dL (9-20) H 07/20/21 01:46 Creatinine 1.0 mg/dL (0.8-1.3) 07/20/21 01:46 Estimated GFR > 60 ml/min 07/20/21 01:46 BUN/Creatinine Ratio 21 % 07/20/21 01:46 Glucose 123 mg/dL (75-100) H 07/20/21 01:46 Calcium 9.4 mg/dL (8.4-10.2) 07/20/21 01:46 Total Bilirubin 0.20 mg/dL (0.1-1.2) 07/20/21 01:46 AST 19 units/L (5-40) 07/20/21 01:46 ALT 14 units/L (7-56) 07/20/21 01:46 Alkaline Phosphatase 80 units/L (35-129) 07/20/21 01:46 Total Protein 8.0 g/dL (6.3-8.2) 07/20/21 01:46 Albumin 3.8 g/dL (3.9-5) L 07/20/21 01:46 Albumin/Globulin Ratio 0.9 % 07/20/21 01:46 - Imaging and Cardiology CT Scan - head: report reviewed Assessment and Plan VTE prophylaxis?: Mechanical Plan of care discussed with patient/family: Yes - Patient Problems (1) Hypertensive urgency Current Visit: Yes Status: Acute Plan to address problem: Admit the patient to the medical telemetry. Cardiac diet. Lisinopril 10 mg p.o. daily. Hydralazine 10 mg IV every 6 hours as needed. Patient already got clonidine 0.2 mg p.o. x1 dose in the emergency room. We will monitor the patient closely. If needed will consult cardiology (2) Seizure Current Visit: Yes Status: Acute Plan to address problem: Stable. We will continue the current carbamazepine 200 mg p.o. twice daily. Outpatient follow-up with neurology (3) HIV (human immunodeficiency virus infection) Current Visit: Yes Status: Acute Plan to address problem: States he was told all his counts were normal Spring 2020) Outpatient follow-up with infectious disease (4) Headache Current Visit: Yes Status: Acute Plan to address problem: Tylenol 650 mg p.o. every 6 hours as needed. Morphine 2 mg IV every 4 hours as needed. Will control the blood pressure (5) DVT prophylaxis Current Visit: Yes Status: Acute Plan to address problem: SCD for DVT prophylaxis because of high blood pressure. Pepcid 20 mg p.o. twice daily for GI prophylaxis. Patient is a full code
[2021-07-20] MEDS ORDERED: IPRATROPIUM/ALBUTEROL SULFATE 3 ML AMPUL.NEB IH SCH (08:00)
[2021-07-20] MEDS: FAMOTIDINE 20 MG TAB PO SCH ×2 (09:25→21:43)
[2021-07-20] MEDS: carBAMazepine 200 MG TAB PO SCH ×2 (09:26→21:43)
[2021-07-20] MEDS: valACYclovir 500 MG TAB PO SCH (09:27)
[2021-07-20] MEDS ORDERED: LISINOPRIL 10 MG TAB PO SCH (10:00)
[2021-07-20] MEDS ORDERED: FAMOTIDINE 20 MG/2 ML INJ IV SCH (10:00)
[2021-07-20] MEDS ORDERED: VALSARTAN 40 MG TAB PO SCH (10:00)
[2021-07-20] MEDS ORDERED: NIFEdipine XL 30 MG TAB PO SCH (10:00)
[2021-07-20] MEDS ORDERED: AZITHROMYCIN 250 MG TAB PO SCH (10:00)
[2021-07-20] MEDS ORDERED: NON-FORMULARY EACH (Valacyclovir Hcl [Valtrex] 1,000 MG Tablet) PO SCH (10:00)
--- NOTE | 2021-07-20 15:47 | Event Note ---
Date: 07/20/21 The patient was evaluated this morning, and he was hemodynamically stable. The patient will have an EKG due to tachycardia. The patient had potassium repleted.
[2021-07-20] MEDS: ACETAMINOPHEN 325 MG TAB PO PRN (17:52)
[2021-07-21] MEDS: ACETAMINOPHEN 325 MG TAB PO PRN ×2 (04:15→10:32)
[2021-07-21] MEDS ORDERED: NIFEdipine XL 30 MG TAB PO SCH (07:48)
[2021-07-21] MEDS ORDERED: VALSARTAN 40 MG TAB PO SCH (07:48)
[2021-07-21 09:13] LABS: Basophils % (Auto) 0.3 % (0.0-1.8); Eosinophils # (Auto) 0.1 K/mm3 (0.0-0.4); Eosinophils % (Auto) 2.8 % (0.0-4.3); Hemoglobin 13.5 gm/dl (11.8-15.2); Lymphocytes # (Auto) 1.7 K/mm3 (1.2-5.4); Lymphocytes % (Auto) 44.7 % (13.4-35.0); Mean Corpuscular HGB Conc 32 % (32-34); Mean Corpuscular Volume 85 fl (84-94); Monocytes # (Auto) 0.3 K/mm3 (0.0-0.8); Monocytes % (Auto) 6.6 % (0.0-7.3); Platelet Count 255 K/mm3 (140-440); Red Blood Count 4.96 M/mm3 (3.65-5.03); Red Cell Distribution Width 15.9 % (13.2-15.2)
[2021-07-21 09:24] LABS: BUN/Creatinine Ratio 23; Blood Urea Nitrogen 23 mg/dL (9-20); Calcium 9.1 mg/dL (8.4-10.2); Hemolysis Index 4
[2021-07-21] MEDS: valACYclovir 500 MG TAB PO SCH (10:29)
[2021-07-21] MEDS: POTASSIUM CHLORIDE ER 20 MEQ TAB PO SCH (10:30)
[2021-07-21] MEDS: FAMOTIDINE 20 MG TAB PO SCH ×2 (10:30→21:17)
[2021-07-21] MEDS: VALSARTAN 160MG TAB PO SCH (10:31)
[2021-07-21] MEDS: NIFEdipine XL 60 MG TAB PO SCH (10:33)
[2021-07-21] MEDS: carBAMazepine 200 MG TAB PO SCH ×2 (10:33→21:17)
--- NOTE | 2021-07-21 11:59 | Discharge Summary ---
Providers - Providers Date of Admission: 07/20/21 05:41 Date of discharge: 07/21/21 Attending physician: ROMAN HATFIELD MD Primary care physician: MARELY DURAN Hospitalization Reason for admission: Hypertensive emergency Condition: Stable Pertinent studies: Reviewed. Procedures: None. Hospital course: Patient is a 46-year-old male past medical history of uncontrolled hypertension, HIV on HAART, and seizure disorder presented to the emergency department with sharp, pressure-like headache involving his left temporal and periorbital area that have been lasting for approximately 24 hours in addition to facial pain, nausea, and vomiting. Patient was evaluated in the ED was found to have a blood pressure of 178/136. CT head Noncon was unremarkable for intracranial abnormality. The patient was restarted on antihypertensives and admitted for management of hypertensive emergency. Patient's blood pressure has since significantly improved, and the patient is no longer experiencing symptoms. Patient was counseled at length about the importance of medication compliance, and following up with his primary care provider, the patient expresses understanding. The patient is medically cleared for discharge. Disposition: 01 HOME / SELF CARE / HOMELESS Final Discharge Diagnosis (Prints w/discharge instructions): Hypertensive emergency, seizure disorder, HIV, hypokalemia Time spent for discharge: 45 min Core Measure Documentation - Palliative Care Palliative Care/ Comfort Measures: Not Applicable - Core Measures Any of the following diagnoses?: none Exam - Constitutional Vitals: Temp Pulse Resp BP Pulse Ox 98.7 F 96 H 20 158/117 97 07/21/21 04:13 07/21/21 10:31 07/21/21 05:15 07/21/21 10:31 07/21/21 04:13 General appearance: Present: no acute distress, well-nourished - EENT Eyes: Present: PERRL, EOM intact ENT: hearing intact, clear oral mucosa, dentition normal - Neck Neck: Present: supple, normal ROM - Respiratory Respiratory effort: normal Respiratory: bilateral: CTA - Cardiovascular Rhythm: regular Heart Sounds: Present: S1 & S2 - Extremities Extremities: no ischemia, pulses intact, pulses symmetrical, No edema, normal temperature, normal color, Full ROM Peripheral Pulses: within normal limits - Abdominal General gastrointestinal: Present: soft, non-tender, non-distended, normal bowel sounds Male genitourinary: Present: deferred - Rectal Rectal Exam: deferred - Integumentary Integumentary: Present: clear, warm, dry - Musculoskeletal Musculoskeletal: strength equal bilaterally - Psychiatric Psychiatric: appropriate mood/affect, intact judgment & insight, memory intact, cooperative - Neurologic Neurologic: CNII-XII intact, moves all extremities - Allied Health Allied health notes reviewed: nursing Plan Activity: no restrictions Diet: low salt Additional Instructions: Patient is a 46-year-old male past medical history of uncontrolled hypertension, HIV on HAART, and seizure disorder presented to the emergency department with sharp, pressure-like headache involving his left temporal and periorbital area that have been lasting for approximately 24 hours in addition to facial pain, nausea, and vomiting. Patient was evaluated in the ED was found to have a blood pressure of 178/136. CT head Noncon was unremarkable for intracranial abnormality. The patient was restarted on antihypertensives and admitted for management of hypertensive emergency. Patient's blood pressure has since significantly improved, and the patient is no longer experiencing symptoms. Patient was counseled at length about the importance of medication compliance, and following up with his primary care provider, the patient expresses understanding. The patient is medically cleared for discharge. Care Plan Goals: Patient is medically cleared for discharge. Assessment: Patient is a 46-year-old male past medical history of uncontrolled hypertension, HIV on HAART, and seizure disorder presented to the emergency department with sharp, pressure-like headache involving his left temporal and periorbital area that have been lasting for approximately 24 hours in addition to facial pain, nausea, and vomiting. Patient was evaluated in the ED was found to have a blood pressure of 178/136. CT head Noncon was unremarkable for intracranial abnormality. The patient was restarted on antihypertensives and admitted for management of hypertensive emergency. Patient's blood pressure has since significantly improved, and the patient is no longer experiencing symptoms. Patient was counseled at length about the importance of medication compliance, and following up with his primary care provider, the patient expresses under standing. The patient is medically cleared for discharge. Follow up with: MARELY DURAN MD [Primary Care Provider] - 3-5 Days Prescriptions: Valsartan [Diovan] 160 mg PO QDAY #30 tablet Potassium Chloride [K-Dur] 40 meq PO QDAY #30 tablet NIFEdipine XL [Procardia Xl] 60 mg PO QDAY #30 tablet
[2021-07-21] MEDS: HYDROmorphone 1 MG/1 ML INJ IV PRN ×2 (12:08→21:18)
[2021-07-21] MEDS: IBUPROFEN 800 MG TAB PO PRN (16:33)
[2021-07-21] MEDS: METOPROLOL TARTRATE 50 MG TAB PO SCH ×2 (16:33→21:17)
[2021-07-22] MEDS: ACETAMINOPHEN 325 MG TAB PO PRN (03:15)
[2021-07-22] MEDS: IBUPROFEN 800 MG TAB PO PRN (05:04)
[2021-07-22] MEDS: carBAMazepine 200 MG TAB PO SCH (11:19)
[2021-07-22] MEDS: valACYclovir 500 MG TAB PO SCH (11:19)
[2021-07-22] MEDS: POTASSIUM CHLORIDE ER 20 MEQ TAB PO SCH (11:20)
[2021-07-22] MEDS: FAMOTIDINE 20 MG TAB PO SCH (11:21)
[2021-07-22] MEDS: METOPROLOL TARTRATE 50 MG TAB PO SCH (11:21)
[2021-07-22] MEDS: VALSARTAN 160MG TAB PO SCH (11:22)
[2021-07-22] MEDS: NIFEdipine XL 60 MG TAB PO SCH (11:23)
[2021-07-22 12:36] VITALS: BP 135/89
--- NOTE | 2021-07-22 12:36 | Event Note ---
Date: 07/22/21 Patient still in house despite discharge yesterday. He reports that his blood pressure was too high to go home. Noted to have tachycardia on arrival and T- max of 101.6 earlier this morning. Review of systems negative. Patient plans to continue with discharge without any further work-up or observation for fever. Risk versus benefits discussed.
--- NOTE | 2021-07-23 14:14 | Electrocardiograph Report ---
[facility] Test Date: 2021-07-21 Test Time: 10:14:59 Pat Name: SELMA ANDERSON Department: Room: A378 1 Gender: M Clinical Informatics Spec: SOPHY : 1975 Requested By: ROMAN HATFIELD Order Number: [id number] Reading MD: Luci Bravo Measurements Intervals [place] Rate: 102 P: 25 OR: 132 QRS: 27 QRSD: 107 T: 30 QT: 374 QTc: 488 Interpretive Statements Sinus tachycardia Probable left ventricular hypertrophy Compared to ECG 11/02/2020 12:58:19 No significant change Electronically Signed On 07-23-2021 14:13:37 EDT by Luci Bravo
--- NOTE | 2021-07-23 14:19 | Electrocardiograph Report ---
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
== END 2021-07-22 12:58 | disposition home or self-care (01) ==
LOC: ED 00:33 → INTOOBSV 05:41 → 3A 05:41
PROVIDERS: ADMIT Hospitalist; ATTEND Student in an Organized Health Care Education/Training Program
DX: I16.0 Hypertensive urgency (principal); I10 Essential (primary) hypertension; R51.9 Headache, unspecified; R56.9 Unspecified convulsions; Z21 Asymptomatic human immunodeficiency virus [HIV] infection status; Z79.899 Other long term (current) drug therapy; Z98.890 Other specified postprocedural states
CPT/HCPCS: 36415; 70450; 80048; 80053; 85025; 93005; 96374; 96375; 96376; 99285; G0378; J0360; J1170; J1200; J2405

== ENCOUNTER 2021-07-28 12:31 | Emergency (ER) | payer MEDICARE ==
[2021-07-28] MEDS ORDERED: methylPREDNISolone Sod Succinate 125 MG/2 ML INJ IV ONE (12:47)
[2021-07-28] MEDS ORDERED: FAMOTIDINE 20 MG/2 ML INJ IV ONE (12:47)
[2021-07-28] MEDS ORDERED: diphenhydrAMINE 50 MG/ML VIAL IV ONE (12:47)
--- NOTE | 2021-07-28 13:23 | Emergency Department Report ---
HPI - General Chief Complaint: Allergic Reaction Time Seen by Provider: 07/28/21 12:39 - HPI HPI: 46-year-old male with a past medical history of HIV and hypertension presents to the hospital with possible allergic reaction. Patient states he took a nap at 7:30 AM and woke up at 11:30 AM and noticed swelling to his lip. Patient's current medications include valsartan which she has taken for several months. Patient complains of some mild tightness to his throat but denies pruritus, rash, or shortness of breath ED Past Medical Hx - Past Medical History Hx Hypertension: Yes Hx CVA: No Hx Heart Attack/AMI: No Hx Congestive Heart Failure: No Hx Diabetes: No Hx Deep Vein Thrombosis: No Hx Pulmonary Embolism: No Hx GERD: No Hx Liver Disease: No Hx Renal Disease: No Hx Sickle Cell Disease: No Hx Arthritis: No Hx Headaches / Migraines: No Hx Seizures: Yes Hx Kidney Stones: No Hx Psychiatric Treatment: No Hx Asthma: No Hx COPD: No Hx Tuberculosis: No Hx Dementia: No Hx HIV: Yes (States he was told all his counts were normal Spring 2020) - Surgical History Hx Coronary Stent: No Hx Open Heart Surgery: No Hx Pacemaker: No Hx Internal Defibrillator: No Hx Cholecystectomy: No Hx Appendectomy: No Hx Breast Surgery: No Additional Surgical History: hernia repair, craniotomy for "removal of [seizure focus]" - Social History Smoking Status: Never Smoker Substance Use Type: None - Medications Home Medications: Home Medications Medication Instructions Recorded Confirmed Last Taken Type Valacyclovir HCl [Valtrex] 1,000 mg PO DAILY 06/09/14 07/20/21 10/12/20 History Elviteg/Dina/Emtric/Tenofo Ala 1 tab PO DAILY 07/21/21 07/21/21 Unknown History [Genvoya (Nf)] Ibuprofen [Motrin 800 MG tab] 800 mg PO Q8HR PRN 07/21/21 07/21/21 Unknown History NIFEdipine XL [Procardia Xl] 60 mg PO QDAY #30 tablet 07/21/21 Unknown Rx Potassium Chloride [K-Dur] 40 meq PO QDAY #30 tablet 07/21/21 Unknown Rx Famotidine [Pepcid] 20 mg PO BID #10 tablet 07/28/21 Unknown Rx Hydralazine HCl 50 mg PO Q8HR #90 tab 07/28/21 Unknown Rx Prednisone [predniSONE 10 mg 10 mg PO .TAPER #1 07/28/21 Unknown Rx (6-Day Pack, 21 Tabs)] diphenhydrAMINE [Benadryl CAP] 25 mg PO Q6HR PRN #20 capsule 07/28/21 Unknown Rx ED Review of Systems ROS: Stated complaint: FACE SWELLING Other details as noted in HPI Comment: All other systems reviewed and negative Physical Exam - Physical Exam Physical Exam: General: No acute distress Head: Atraumatic Eyes: normal appearance ENT: Right upper lip swelling, no posterior pharyngeal swelling, no tongue swelling, no stridor Neck: Normal appearance, no midline tenderness Chest: Clear to auscultation bilaterally CV: Regular rate and rhythm Abdomen: Soft, normal bowel sounds, nontender, nondistended, no rebound or guarding Back: Normal inspection Extremity: Normal inspection, full range of motion Neuro: Alert O x 3, no facial asymmetry, speech clear, no gross motor sensory deficit Psych: Appropriate behavior Skin: No rash ED Course - Reevaluation(s) Reevaluation #1: 07/28/21 16:56 pt reports that lip swelling in unchanged (no better or worse) and his minor throat tightness has improved. - Consultations Consultation #1: 07/28/21 17:00 case d/w DR Velasquez for recommendation for replacement BP med after discontinuing Valsartan he recommends hydralazine 50 mg every 8 hours ED Medical Decision Making - Lab Data Result diagrams: 07/28/21 13:02 07/28/21 13:02 Lab Results 07/28/21 07/28/21 Range/Units 13:02 13:02 WBC 6.9 (4.5-11.0) K/mm3 RBC 5.27 H (3.65-5.03) M/mm3 Hgb 14.3 (11.8-15.2) gm/dl Hct 43.8 (35.5-45.6) % MCV 83 L (84-94) fl MCH 27 L (28-32) pg MCHC 33 (32-34) % RDW 16.1 H (13.2-15.2) % Plt Count 406 (140-440) K/mm3 Lymph % (Auto) 48.5 H (13.4-35.0) % [place] % (Auto) 10.0 H (0.0-7.3) % Eos % (Auto) 2.1 (0.0-4.3) % Baso % (Auto) 0.7 (0.0-1.8) % Lymph # (Auto) 3.4 (1.2-5.4) K/mm3 [place] # (Auto) 0.7 (0.0-0.8) K/mm3 Eos # (Auto) 0.1 (0.0-0.4) K/mm3 Baso # (Auto) 0.1 (0.0-0.1) K/mm3 Seg Neutrophils % 38.7 L (40.0-70.0) % Seg Neutrophils # 2.7 (1.8-7.7) K/mm3 Sodium 136 L (137-145) mmol/L Potassium 3.4 L (3.6-5.0) mmol/L Chloride 95.7 L (98-107) mmol/L Carbon Dioxide 28 (22-30) mmol/L Anion Gap 16 mmol/L BUN 45 H (9-20) mg/dL Creatinine 1.3 (0.8-1.3) mg/dL Estimated GFR > 60 ml/min BUN/Creatinine Ratio 35 % Glucose 103 H (75-100) mg/dL Calcium 9.2 (8.4-10.2) mg/dL - Medical Decision Making pt with lip swelling on exam likely induced by ARB no laryngeal symptoms or intraoral swelling during ed stay pt was noted to have mild dehydration and mild hypokalemia based on bmp PO kcl and IVF provided pt instructed to discontinue arb and f/u up with pmd for medication adjustment. Critical Care Time: No Critical care attestation.: If time is entered above; I have spent that time in minutes in the direct care of this critically ill patient, excluding procedure time. ED Disposition Clinical Impression: On angiotensin receptor blockers (ARB), Angioedema, Lip swelling, Dehydration, Hypokalemia, Chronic hypertension Disposition: 01 HOME / SELF CARE / HOMELESS Is pt being admited?: No Does the pt Need Aspirin: No Condition: Stable Instructions: Angioedema, [id number], Hypertension (ED) Additional Instructions: Stop the valsartan because this is likely causing the swelling of your lips. Please report this as an adverse reaction/allergy to your doctors during future visits. You have been prescribed hydralazine for your blood pressure management to take in addition to your other medications. Take the other medications as prescribed. Please return promptly to the ER if you have worsening swelling to your tongue, throat, difficulty breathing, or wheezing. Follow-up with your doctor for further assessment and medication adjustment as needed Prescriptions: diphenhydrAMINE [Benadryl CAP] 25 mg PO Q6HR PRN #20 capsule PRN Reason: Allergy Symptoms Hydralazine HCl 50 mg PO Q8HR #90 tab Famotidine [Pepcid] 20 mg PO BID #10 tablet Prednisone [predniSONE 10 mg (6-Day Pack, 21 Tabs)] 10 mg PO .TAPER #1 Referrals: GERARDO PHILLIP MD [Primary Care Provider] - 3-5 Days Time of Disposition: 17:11
[2021-07-28 13:32] LABS: Basophils # (Auto) 0.1 K/mm3 (0.0-0.1); Basophils % (Auto) 0.7 % (0.0-1.8); Eosinophils # (Auto) 0.1 K/mm3 (0.0-0.4); Eosinophils % (Auto) 2.1 % (0.0-4.3); Hematocrit 43.8 % (35.5-45.6); Hemoglobin 14.3 gm/dl (11.8-15.2); Lymphocytes # (Auto) 3.4 K/mm3 (1.2-5.4); Lymphocytes % (Auto) 48.5 % (13.4-35.0); Mean Corpuscular HGB Conc 33 % (32-34); Mean Corpuscular Volume 83 fl (84-94); Monocytes # (Auto) 0.7 K/mm3 (0.0-0.8); Platelet Count 406 K/mm3 (140-440); Red Blood Count 5.27 M/mm3 (3.65-5.03); Red Cell Distribution Width 16.1 % (13.2-15.2)
[2021-07-28 13:44] LABS: BUN/Creatinine Ratio 35; Blood Urea Nitrogen 45 mg/dL (9-20); Calcium 9.2 mg/dL (8.4-10.2); Hemolysis Index 6
[2021-07-28] MEDS ORDERED: SODIUM CHLORIDE 0.9% 500 ML 500 ML IV ONE (15:45)
[2021-07-28] MEDS ORDERED: POTASSIUM CHLORIDE 20 MEQ PACKET PO NR (17:30)
[2021-07-28 17:38] VITALS: BP 115/88
== END 2021-07-28 17:39 | disposition home or self-care (01) ==
LOC: ED 12:31
DX: T78.3XXA Angioneurotic edema, initial encounter (principal); T46.4X5A Adverse effect of angiotensin-converting-enzyme inhibitors, initial encounter; R22.9 Localized swelling, mass and lump, unspecified; E86.0 Dehydration; E87.6 Hypokalemia; I10 Essential (primary) hypertension; R56.9 Unspecified convulsions; Z21 Asymptomatic human immunodeficiency virus [HIV] infection status; Z98.890 Other specified postprocedural states
CPT/HCPCS: 36415; 80048; 85025; 96374; 96375; 99284; J1200; J2930; J3490; J7040

== ENCOUNTER 2021-08-24 21:26 | Emergency (ER) | payer MEDICARE ==
[2021-08-24] MEDS ORDERED: ONDANSETRON 4 MG/2 ML INJ IV ONE (21:53)
[2021-08-24] MEDS ORDERED: levETIRAcetam 1000 MG/NS 0.75% 1,000 MG/100 ML BAG IV ONE (21:53)
[2021-08-24] MEDS ORDERED: BUTALB/ACETAMINOPHEN/CAFFEINE TAB PO ONE (21:53)
[2021-08-24] MEDS ORDERED: cloNIDine 0.1 MG TAB PO ONE (21:54)
--- NOTE | 2021-08-24 21:56 | Emergency Department Report ---
HPI - General Chief Complaint: Seizure Time Seen by Provider: 08/24/21 21:46 - HPI HPI: Room 6 Patient is a 46-year-old male present with chief complaint of seizures. Patient has a history of seizures and had witnessed generalized tonic-clonic seizure this evening. Patient states his sister was there and called EMS. Patient states he does not recall the last time he had a seizure before today. Patient states he is taking 2 seizure medications but only remembers that that one his Keppra. Patient does not recall the name of the second seizure med. Patient now complains of nausea body aches and headache. ED Past Medical Hx - Past Medical History Previous Medical History?: Yes Hx Hypertension: Yes Hx Seizures: Yes Hx HIV: Yes (States he was told all his counts were normal Spring 2020) - Surgical History Past Surgical History?: Yes Additional Surgical History: hernia repair, craniotomy for "removal of [seizure focus]" - Family History Family history: no significant - Social History Smoking Status: Former Smoker (None for over 10 years) Substance Use Type: None (Denies illicit drug use) - Medications Home Medications: Home Medications Medication Instructions Recorded Confirmed Last Taken Type Valacyclovir HCl [Valtrex] 1,000 mg PO DAILY 06/09/14 07/20/21 10/12/20 History Elviteg/Dina/Emtric/Tenofo [place] 1 tab PO DAILY 07/21/21 07/21/21 Unknown History [Genvoya (Nf)] Ibuprofen [Motrin 800 MG tab] 800 mg PO Q8HR PRN 07/21/21 07/21/21 Unknown History NIFEdipine XL [Procardia Xl] 60 mg PO QDAY #30 tablet 07/21/21 Unknown Rx Potassium Chloride [K-Dur] 40 meq PO QDAY #30 tablet 07/21/21 Unknown Rx Famotidine [Pepcid] 20 mg PO BID #10 tablet 07/28/21 Unknown Rx Hydralazine HCl 50 mg PO Q8HR #90 tab 07/28/21 Unknown Rx Prednisone [predniSONE 10 mg 10 mg PO .TAPER #1 07/28/21 Unknown Rx (6-Day Pack, 21 Tabs)] diphenhydrAMINE [Benadryl CAP] 25 mg PO Q6HR PRN #20 capsule 07/28/21 Unknown Rx levETIRAcetam [Keppra TAB] 1,000 mg PO BID #60 tab 08/24/21 Unknown Rx ED Review of Systems ROS: Stated complaint: POST ICTAL Other details as noted in HPI Constitutional: no symptoms reported Eyes: denies: eye pain ENT: denies: throat pain Respiratory: no symptoms reported Cardiovascular: denies: chest pain Endocrine: no symptoms reported Gastrointestinal: nausea. denies: abdominal pain Genitourinary: denies: dysuria Musculoskeletal: myalgia Neurological: headache Physical Exam - Physical Exam Vital Signs: Vital Signs 08/24/21 21:35 Temperature 98 F Pulse Rate 110 H Respiratory 18 Rate Blood Pressure 175/95 O2 Sat by Pulse 97 Oximetry Physical Exam: GENERAL: The patient is well-developed well-nourished male lying on stretcher not appearing to be in acute distress. [] HEENT: Normocephalic. Atraumatic. Extraocular motions are intact. Patient has moist mucous membranes. NECK: Supple. No meningitic signs are noted. Trachea midline CHEST/LUNGS: Clear to auscultation. There is no respiratory distress noted. HEART/CARDIOVASCULAR: Regular. There is no tachycardia. There is no gallop rub or murmur. ABDOMEN: Abdomen is soft, nontender. Patient has normal bowel sounds. There is no abdominal distention. SKIN: There is no rash. There is no edema. There is no diaphoresis. NEURO: The patient is awake, alert, and oriented. The patient is cooperative. The patient has no focal neurologic deficits. The patient has normal speech. Cranial nerves II through XII grossly intact. GCS 15 MUSCULOSKELETAL: There is no evidence of acute injury. ED Course Vital Signs 08/24/21 21:35 Temperature 98 F Pulse Rate 110 H Respiratory 18 Rate Blood Pressure 175/95 O2 Sat by Pulse 97 Oximetry ED Medical Decision Making - Lab Data Result diagrams: 08/24/21 22:00 08/24/21 22:00 Laboratory Tests 08/24/21 08/24/21 22:00 22:00 WBC 5.8 RBC 4.86 Hgb 13.3 Hct 40.9 MCV 84 MCH 28 MCHC 33 RDW 17.8 H Plt Count 321 Lymph % (Auto) Not Reportable [place] % (Auto) Not Reportable Eos % (Auto) Not Reportable Baso % (Auto) Not Reportable Lymph # (Auto) Not Reportable [place] # (Auto) Not Reportable Eos # (Auto) Not Reportable Baso # (Auto) Not Reportable Seg Neutrophils % Microbiology Manager Seg Neutrophils # Not Reportable Sodium 140 Potassium 3.5 L Chloride 100.7 Carbon Dioxide 26 Anion Gap 17 BUN 25 H Creatinine 0.8 Estimated GFR > 60 BUN/Creatinine Ratio 31 Glucose 101 H Calcium 8.9 Magnesium 1.90 - Differential Diagnosis Seizure Critical care attestation.: If time is entered above; I have spent that time in minutes in the direct care of this critically ill patient, excluding procedure time. ED Disposition Clinical Impression: Seizure, Hypokalemia Disposition: 01 HOME / SELF CARE / HOMELESS Is pt being admited?: No Does the pt Need Aspirin: No Condition: Stable Instructions: Epilepsy, [id number] Additional Instructions: Return to the emergency department should you develop worsening symptoms, inability to tolerate food or liquids, high fever or any other concerns Prescriptions: levETIRAcetam [Keppra TAB] 1,000 mg PO BID #60 tab Referrals: HUMERA MELVIN MD [Staff Physician] - 3-5 Days (Dr. Melvin is a neurologist. Please follow-up with him for further evaluation if you do not already have a neurologist) Time of Disposition: 23:10
[2021-08-24 22:31] LABS: Hematocrit 40.9 % (35.5-45.6); Hemoglobin 13.3 gm/dl (11.8-15.2); Mean Corpuscular HGB Conc 33 % (32-34); Mean Corpuscular Volume 84 fl (84-94); Platelet Count 321 K/mm3 (140-440); Red Blood Count 4.86 M/mm3 (3.65-5.03); Red Cell Distribution Width 17.8 % (13.2-15.2)
[2021-08-24 22:48] LABS: BUN/Creatinine Ratio 31; Blood Urea Nitrogen 25 mg/dL (9-20); Calcium 8.9 mg/dL (8.4-10.2); Hemolysis Index 19
[2021-08-24] MEDS ORDERED: POTASSIUM CHLORIDE ER 20 MEQ TAB PO ONE (23:08)
[2021-08-24 23:38] LABS: Total Cells Counted 100
[2021-08-24 23:39] LABS: Basophils % (Manual) 0 % (0.0-1.8); Platelet Estimate Consistent w Auto; RBC Morphology Normal
[2021-08-24 23:51] VITALS: BP 142/88
== END 2021-08-24 23:58 | disposition home or self-care (01) ==
LOC: ED 21:26
DX: R56.9 Unspecified convulsions (principal); E87.6 Hypokalemia; I10 Essential (primary) hypertension; Z21 Asymptomatic human immunodeficiency virus [HIV] infection status; Z87.891 Personal history of nicotine dependence
CPT/HCPCS: 36415; 80048; 83735; 85007; 85025; 96374; 96375; 99284; J1953; J2405

== ENCOUNTER 2021-09-04 13:35 | Emergency (ER) | payer MEDICARE | END 2021-09-04 15:00 | disposition left against medical advice (07) | LOC: ED 13:35 | DX: Z00.00 Encounter for general adult medical examination without abnormal findings (principal); Z53.21 Procedure and treatment not carried out due to patient leaving prior to being seen by health care provider ==

== ENCOUNTER 2022-01-17 16:21 | Emergency (ER) | payer MEDICARE | END 2022-01-17 17:00 | disposition left against medical advice (07) | LOC: ED 16:21 | DX: M54.9 Dorsalgia, unspecified (principal); R41.0 Disorientation, unspecified; Z53.21 Procedure and treatment not carried out due to patient leaving prior to being seen by health care provider ==